=== PATIENT | female | born 1955 | race Caucasian/White ===

== ENCOUNTER 2021-02-25 08:47 | Outpatient (REF) | payer OTHER, SELFPAY ==
[2021-02-25 11:20] LABS: Glucose Urine UA NEG (NEG); Leukocyte Esterase Urine NEG (NEG); Nitrite Urine NEG (NEG); PH 5.5 (5.0-8.0); Specific Gravity - Urine >= 1.030 (1.005-1.025); Urine Blood 3+ (NEG); Urine Ketones NEG (NEG); Urine Protein NEG (NEG-TRACE)
[2021-02-25 11:29] LABS: Appearance Urine HAZY; Color Urine YELLOW
[2021-02-25 11:42] LABS: Hemoglobin 12.5 g/dl (12.0-16.0); Mean Corpuscular HGB Conc 31.3 g/dl (31.0-35.0); Mean Corpuscular Hemoglobin 24.3 pg (27.0-33.0); Mean Corpuscular Volume 77.7 fL (80-98); Mean Platelet Volume 11.1 fL (9.4-12.3); Platelet Count 249 X10*3/uL (160-400); Red Blood Count 5.15 X10*6/uL (4.20-5.50); Red Cell Distribution Width 15.3 % (11.0-16.0); White Blood Count 4.6 X10*3/uL (4.8-10.8)
[2021-02-25 11:56] LABS: Alanine Aminotransferase 8 U/L (0-31); Albumin Level 4.2 g/dL (3.5-5.0); Alkaline Phosphatase 85 U/L (39-117); Anion Gap 12 (12-20); Aspartate Amino Transferase 17 U/L (5-31); Bilirubin Total 0.8 mg/dL (0.0-1.0); Blood Urea Nitrogen 17 mg/dL (9-16); Calcium 9.4 mg/dL (8.4-10.2); Carbon Dioxide 28 mmol/L (22-29); Chloride 103 mmol/L (96-108); Cholesterol 215 mg/dL; Estimated Glomerular Filt Rate > 60; Glucose Fasting 91 mg/dL (60-99); HDL Cholesterol 63 mg/dL; LDL Cholesterol Calculated 132 mg/dl; Potassium 4.4 mmol/L (3.3-5.1); Sodium 139 mmol/L (135-145); Total Protein 7.2 g/dL (6.5-8.0); Triglycerides 101 mg/dL
[2021-02-25 12:01] LABS: Bacteria Urine TRACE /LPF; Calcium Oxalate Crystals Urine 2+ /LPF; RBC Urine 30-49 /HPF (0); Squamous Epithelial Cell Urine 1+ /LPF; WBC Urine 0 /HPF (0-4)
[2021-02-25 12:06] LABS: TSH reflex Free T4 0.94 uIU/mL (0.32-4.0)
== END 2021-02-25 08:48 | disposition home or self-care (01) ==
LOC: HO.HMGCLDS 08:47
PROVIDERS: PCP Internal Medicine; Visit Provider Internal Medicine
DX: Z00.00 Encounter for general adult medical examination without abnormal findings (principal); H93.19 Tinnitus, unspecified ear
CPT/HCPCS: 36415; 80053; 80061; 81001; 84443; 85027

== ENCOUNTER 2021-03-26 08:19 | Outpatient (REF) | payer OTHER, SELFPAY ==
[2021-03-26 11:39] LABS: Glucose Urine UA NEG (NEG); Leukocyte Esterase Urine NEG (NEG); Nitrite Urine NEG (NEG); PH 6.5 (5.0-8.0); Specific Gravity - Urine 1.015 (1.005-1.025); UACC Culture Trigger NO; Urine Blood 1+ (NEG); Urine Ketones NEG (NEG); Urine Protein TRACE MG/DL (NEG-TRACE)
[2021-03-26 11:44] LABS: Appearance Urine CLEAR; Color Urine YELLOW
[2021-03-26 12:06] LABS: Bacteria Urine TRACE /LPF; Mucus Urine 1+ /LPF; Squamous Epithelial Cell Urine 1+ /LPF; WBC Urine 0-2 /HPF (0-4)
== END 2021-03-26 08:20 | disposition home or self-care (01) ==
LOC: HO.HMGCLDS 08:19
PROVIDERS: PCP Internal Medicine; Visit Provider Internal Medicine
DX: R31.29 Other microscopic hematuria (principal)
CPT/HCPCS: 81001

== ENCOUNTER 2021-04-08 07:44 | Outpatient (REF) | payer OTHER, SELFPAY ==
[2021-04-08 11:43] LABS: Glucose Urine UA NEG (NEG); Leukocyte Esterase Urine NEG (NEG); Nitrite Urine NEG (NEG); UACC Culture Trigger NO; Urine Blood 2+ (NEG); Urine Ketones NEG (NEG); Urine Protein NEG (NEG-TRACE)
[2021-04-08 11:44] LABS: Appearance Urine CLEAR; Color Urine YELLOW
[2021-04-08 12:50] LABS: Bacteria Urine TRACE /LPF; Calcium Phosphate Crystals Ur TRACE /LPF; Squamous Epithelial Cell Urine TRACE /LPF; WBC Urine 0-2 /HPF (0-4); White Blood Cell Casts Urine 0-2 /LPF
== END 2021-04-08 07:45 | disposition home or self-care (01) ==
LOC: HO.HMGCLDS 07:44
PROVIDERS: PCP Internal Medicine; Visit Provider Internal Medicine
DX: R31.29 Other microscopic hematuria (principal)
CPT/HCPCS: 81001

== ENCOUNTER 2023-01-11 09:52 | Outpatient (REF) | payer MEDICARE, SELFPAY ==
[2023-01-11 11:20] LABS: MANUAL DIFF FLAG NO
[2023-01-11 11:26] LABS: Appearance Urine Clear; Color Urine Yellow; Glucose Urine UA Negative (Negative); Leukocyte Esterase Urine Negative (Negative); Nitrite Urine Negative (Negative); PH 6.5 (5.0-9.0); Urine Blood Negative (Negative); Urine Ketones Negative (Negative); Urine Protein Negative (Neg-Trace)
[2023-01-11 11:33] LABS: Bacteria Urine None Seen (None Seen); Hyaline Casts Urine 0-2 /LPF (0-2); Squamous Epithelial Cell Urine 0-2 /HPF (0-2); WBC Urine 0-5 /HPF (0-5)
[2023-01-11 11:34] LABS: Basophils Absolute Auto 0.1 X10*3/uL (0.0-0.2); Basophils Percent Auto 1.4 % (0-2); Eosinophils Absolute Auto 0.1 X10*3/uL (0.0-0.4); Eosinophils Percent Auto 1.7 % (0-4); Hematocrit 39.5 % (37.0-47.0); Hemoglobin 12.4 g/dl (12.0-16.0); Imm Gran Abs Auto 0.03 X10*3/uL (0.00-0.03); Imm Gran Pct Auto 0.7 % (0.0-0.4); Lymphocytes Absolute Auto 1.5 X10*3/uL (1.2-4.9); Lymphocytes Percent Auto 36.3 % (20-40); Mean Corpuscular HGB Conc 31.4 g/dl (31.0-35.0); Mean Corpuscular Hemoglobin 24.8 pg (27.0-33.0); Mean Corpuscular Volume 79.2 fL (80.0-98.0); Mean Platelet Volume 10.8 fL (9.4-12.3); Monocytes Absolute Auto 0.4 X10*3/uL (0.1-1.2); Monocytes Percent Auto 9.5 % (2-11); Neutrophils Absolute Auto 2.1 x10*3/uL (2.0-8.3); Neutrophils Percent Auto 50.4 % (45-73); Platelet Count 227 X10*3/uL (160-400); Red Blood Count 4.99 X10*6/uL (4.20-5.50); Red Cell Distribution Width 14.7 % (11.0-16.0); White Blood Count 4.2 X10*3/uL (4.8-10.8)
[2023-01-11 12:01] LABS: Alanine Aminotransferase 11 U/L (0-31); Albumin Level 4.1 g/dL (3.5-5.0); Alkaline Phosphatase 97 U/L (39-117); Anion Gap 10 (12-20); Aspartate Amino Transferase 20 U/L (5-31); Bilirubin Total 0.9 mg/dL (0.0-1.0); Blood Urea Nitrogen 22 mg/dL (9-16); Calcium 9.5 mg/dL (8.4-10.2); Carbon Dioxide 29 mmol/L (22-29); Chloride 104 mmol/L (96-108); Cholesterol 212 mg/dL; Estimated Glomerular Filt Rate > 60; Glucose Fasting 93 mg/dL (60-99); HDL Cholesterol 68 mg/dL; Iron 44 mcg/dL (30-160); LDL Cholesterol Calculated 130 mg/dl; Percent Iron Saturation 10 % (15-50); Potassium 4.4 mmol/L (3.3-5.1); Sodium 139 mmol/L (135-145); Total Iron Binding Capacity 443 mcg/dL (228-428); Triglycerides 71 mg/dL; Unsaturated Iron Binding 399 ug/dL
[2023-01-11 12:31] LABS: Folate 11.7 ng/mL (> or = 4.0); TSH reflex Free T4 1.32 uIU/mL (0.32-4.0); Vitamin B12 169 pg/mL (200-900); Vitamin D 25-OH Total 14.1 ng/mL (>30)
== END 2023-01-11 09:53 | disposition home or self-care (01) ==
LOC: HO.HMGCLDS 09:52
PROVIDERS: PCP Internal Medicine; Visit Provider Internal Medicine
DX: Z00.00 Encounter for general adult medical examination without abnormal findings (principal); E53.8 Deficiency of other specified B group vitamins; E66.9 Obesity, unspecified; E78.5 Hyperlipidemia, unspecified; R31.29 Other microscopic hematuria; I25.10 Atherosclerotic heart disease of native coronary artery without angina pectoris; I25.84 Coronary atherosclerosis due to calcified coronary lesion; Z92.89 Personal history of other medical treatment
CPT/HCPCS: 36415; 80053; 80061; 81001; 82306; 82607; 82746; 83540; 84443; 85025

== ENCOUNTER 2023-03-09 08:53 | Outpatient (REF) | payer MEDICARE, SELFPAY ==
--- NOTE | ~2023-03-09 | MM_ITS ---
EXAMINATION: BONE DENSITOMETRY CLINICAL INDICATION: Menopause. COMPARISON: This is the patient's baseline examination. TECHNIQUE: Using a [employer] DXA System (software version: 13.1) manufactured by [employer], dual-energy x-ray absorptiometry was performed of the lumbar spine and left hip. The images are of good technical quality. Summary results are attached. FINDINGS: LEFT FEMUR, NECK: BMD 0.707 g/cm2, Z-score -1.6, T-score -2.4, osteopenia. LEFT FEMUR, TOTAL: BMD 0.779 g/cm2, Z-score -1.4, T-score -1.8, osteopenia. AP SPINE L1-L4: BMD 0.981 g/cm2, Z-score -1.2, T-score -1.7, osteopenia. IDENTIFIED RISK FACTORS: Menopause, osteoporosis, glucocorticoids (chronic), history of fracture (adult), low calcium intake, secondary osteoporosis. HISTORY OF FRACTURE: Other. MEDICATIONS: Calcium, vitamin D. MM/XR DEXA axial skeleton IMPRESSION: 1. DIAGNOSIS: Osteopenia based on the lowest T-score value of -2.4 in the femoral neck applying World Health Organization criteria. 2. 10-YEAR FRACTURE RISK PREDICTION, FRAX: Major osteoporotic fracture (clinical spine, forearm, hip or shoulder) 29.8%. Hip fracture 7.0%. 3. Treatment Recommendations: NOF guidelines recommend consideration for treatment in postmenopausal women and men age 50 and older presenting with the following: -A hip or vertebral (clinical or morphometric) fracture. -T-score less than or equal to -2.5 at the femoral neck or spine after appropriate evaluation to exclude secondary causes. -Low bone mass at the hip or spine and a 10-year fracture probability by FRAX of greater than or equal to 3% for hip fracture or greater than or equal to 20% for major osteoporotic fracture based on the [place] adapted WHO algorithm. 4. Other Recommendations: All treatment decisions require clinical judgment and consideration of individual patient factors, including patient preferences, comorbidities, previous drug use, risk factors not captured in the FRAX model (e.g. frailty, falls, vitamin D deficiency, increased bone turnover, interval significant decline in bone density) and possible under or overestimation of fracture risk by FRAX. Additional medical evaluation for secondary cause of low bone mineral density may be appropriate. FUTURE SCAN RECOMMENDATION: People with diagnosed cases of osteoporosis or at high risk for fracture should have regular bone mineral density tests. For patients eligible for Medicare, routine testing is allowed once every 2 years. The testing frequency can be increased to one year for patients who have rapidly progressing disease, those who are receiving or discontinuing medical therapy to restore bone mass, or have additional risk factors.
== END 2023-03-09 08:54 | disposition home or self-care (01) ==
LOC: HO.MAMMO 08:53
PROVIDERS: PCP Internal Medicine; Visit Provider Internal Medicine
DX: Z13.820 Encounter for screening for osteoporosis (principal); Z78.0 Asymptomatic menopausal state
CPT/HCPCS: 77080

== ENCOUNTER 2023-05-18 12:02 | Outpatient (AMB) | payer MEDICARE, SELFPAY ==
--- NOTE | 2023-05-18 12:18 | MHC.PC.OV ---
Vital Signs 05/18/23 12:19 Height 5 ft 8.5 in Weight 251 lb 2 oz BMI 37.6 BP 126/70 Blood Pressure Location Rt brachial Position Sitting Pulse 70 Pulse Source Pulse Oximeter Pulse Oximetry (%) 98 Oxygen Delivery Method Room Air Intake Visit Reasons: 3M Follow up Allergies amoxicillin Allergy (Unknown, Verified 05/18/23 12:20) unknown oxycodone [Percocet] Allergy (Unknown, Verified 05/18/23 12:20) unknown penicillin V Allergy (Unknown, Verified 05/18/23 12:20) unknown Sulfa (Sulfonamide Antibiotics) Allergy (Unknown, Verified 05/18/23 12:20) unkown Medication List - Last Reconciled 05/18/23 by Milana Hester MD calcium carbonate (Calcium 500) PO compr.stocking,knee,long,large As directed multivitamin with iron PO pravastatin 40 mg PO DAILY Tobacco use date assessed: 05/18/23 Fall risk assessment: No Falls in past year Last assessed Fall Risk: 05/18/23 Dental Screening Dental Screen Date: 05/18/23 Did you have a dental visit in the last 12 months?: Yes Did you have a dental problem in the last 6 months where you did not have access to dental care?: No Was dental information given to patient?: Patient has dentist HPI 3M Follow up HPI Details Pt presents for f/u hyperlipid, stable on pravastatin. Patient complains of leg cramps worse at night waking patient up up to 3 times a night. Patient complains of declining memory having episodes of forgetting where she is driving. 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 [facility] Medical History Hyperlipidemia Vitamin B 12 deficiency Microhematuria Annual physical exam Tinnitus FH: total knee replacement Osteoarthritis, knee Iron deficiency anemia Asthma Osteopenia Surgical History S/P gastric bypass History of esophagogastroduodenoscopy (EGD) H/O colonoscopy Family History Father Cancer Mother No problems noted. Social History Housing: House Patient Tobacco Use Status: Never used Tobacco e-Cigarette/Vaping Use: Never Used Second Hand Smoke Exposure: No service: No Current occupational status: employed Current occupational exposures/hazards: No Cognitive needs: No Hearing needs: No Vision needs: No Questionnaire Thrive Questionnaire Date Thrive assessed: 09/15/21 AUDIT C Alcohol Use Questionnaire (AUDIT-C) 1. How often do you have a drink containing alcohol?: Never 3. How often do you have six or more drinks on one occasion?: Never Total Score: 0 Score Reviewed/Action Taken: Yes NBA-7 AMB Questionnaire NBA-7 Date NBA - 7 assessed: 09/15/21 Source: Developed by Drs. Roberto Muniz, Kim Pat, Lalo Deng and colleagues, with an educational ivonne from [employer]. Review of Systems Const All systems reviewed & are unremarkable except as noted in HPI and below Reports no additional complaints Eyes Reports no additional complaints ENT Reports no additional complaints Card Reports no additional complaints Resp Reports no additional complaints GI Reports no additional complaints Reports no additional complaints Physical exam (Primary Care) Vital Signs: Last Vital Signs Pulse 70 05/18/23 12:19 BP 126/70 05/18/23 12:19 Pulse Ox 98 05/18/23 12:19 Oxygen Delivery Method Room Air 05/18/23 12:19 BMI result Body Mass Index 37.6 Tobacco/Smoking Status: Tobacco use Status Tobacco use date assessed 05/18/23 05/18/23 12:22 Patient Tobacco Use Status Never used Tobacco 05/18/23 12:22 e-Cigarette/Vaping Use Never Used 05/18/23 12:22 Thrive Assessment: Date of Thrive Assessment Date Thrive assessed 09/15/21 05/18/23 12:22 Const General: no acute distress HENMT Throat: Yes posterior oropharynx normal Neck Neck: Yes no lymphadenopathy and Yes supple Resp Effort & Inspection: normal respiratory effort Auscultation: clear to auscultation bilaterally Cardio Rhythm: regular rhythm Heart sounds: S1 normal heart sound present and S2 normal heart sound present GI Inspection: Yes normal to inspection Palpation (GI): Soft to palpation Extrem Other: Pulses 1+ bilaterally, chronic venous stasis changes bilaterally in lower extremities General: Yes no clubbing, cyanosis or edema Psych Mental Status: mental status grossly normal Speech and movement: Normal speech and movement present Assessment and Plan Assessment & Plan (1) Vitamin D deficiency: Code(s): E55.9 - Vitamin D deficiency, unspecified Plan: Continue vitamin-D (2) Vitamin B 12 deficiency: Code(s): E53.8 - Deficiency of other specified B group vitamins Plan: Check vitamin B12 level (3) Iron deficiency: Code(s): E61.1 - Iron deficiency Plan: Check iron level (4) Hyperlipidemia: Code(s): E78.5 - Hyperlipidemia, unspecified Plan: Continue pravastatin. For leg cramps patient was advise to try CO Q10 supplement and increase fluid intake if the symptoms persist pravastatin will be discontinued. (5) Memory deficit: Code(s): R41.3 - Other amnesia Plan: Obtain blood work including TSH and vitamin B12 level. Orders: Orders Comprehensive Met. Panel Today E53.8 - Deficiency of other specified B group vitamins, E55.9 - Vitamin D deficiency, unspecified, E61.1 - Iron deficiency Vitamin D 25-OH Total Today E55.9 - Vitamin D deficiency, unspecified IRON PROFILE Today E55.9 - Vitamin D deficiency, unspecified, E61.1 - Iron deficiency, E78.5 - Hyperlipidemia, unspecified Vitamin B12 and Folate Today E55.9 - Vitamin D deficiency, unspecified, E61.1 - Iron deficiency Coding Level of Care Code Est Pt Level 3 (44395) Diagnoses Vitamin D deficiency E55.9 Vitamin B 12 deficiency E53.8 Iron deficiency E61.1 Hyperlipidemia E78.5 Memory deficit R41.3
[2023-05-18 12:19] VITALS: BP 126/70; PULSE 70; O2SAT 98; BMI 37.6
== END 2023-05-18 16:03 | disposition home or self-care (01) ==
PROVIDERS: PCP Internal Medicine; Visit Provider Internal Medicine
DX: E55.9 Vitamin D deficiency, unspecified (principal); E53.8 Deficiency of other specified B group vitamins; E61.1 Iron deficiency; E78.5 Hyperlipidemia, unspecified; R41.3 Other amnesia
CPT/HCPCS: 99213

== ENCOUNTER 2023-05-18 12:53 | Outpatient (REF) | payer MEDICARE, SELFPAY ==
[2023-05-18 17:21] LABS: Alanine Aminotransferase 8 U/L (0-31); Alkaline Phosphatase 85 U/L (39-117); Anion Gap 16 (12-20); Aspartate Amino Transferase 20 U/L (5-31); Bilirubin Total 0.8 mg/dL (0.0-1.0); Blood Urea Nitrogen 16 mg/dL (9-16); Calcium 9.5 mg/dL (8.4-10.2); Carbon Dioxide 25 mmol/L (22-29); Chloride 104 mmol/L (96-108); Estimated Glomerular Filt Rate > 60; Glucose Random 88 mg/dL (60-115); Iron 70 mcg/dL (30-160); Percent Iron Saturation 18 % (15-50); Potassium 4.1 mmol/L (3.3-5.1); Sodium 141 mmol/L (135-145); Total Iron Binding Capacity 394 mcg/dL (228-428); Total Protein 7.2 g/dL (6.5-8.0); Unsaturated Iron Binding 324 ug/dL
[2023-05-18 17:30] LABS: Vitamin D 25-OH Total 31.3 ng/mL (>30)
[2023-05-18 17:41] LABS: Folate 9.4 ng/mL (> or = 4.0); Vitamin B12 197 pg/mL (200-900)
== END 2023-05-18 12:54 | disposition home or self-care (01) ==
LOC: HO.HMGCLDS 12:53
PROVIDERS: PCP Internal Medicine; Visit Provider Internal Medicine
DX: E53.8 Deficiency of other specified B group vitamins (principal); E61.1 Iron deficiency; E78.5 Hyperlipidemia, unspecified; E55.9 Vitamin D deficiency, unspecified
CPT/HCPCS: 36415; 80053; 82306; 82607; 82746; 83540

== ENCOUNTER 2024-01-18 08:48 | Outpatient (AMB) | payer MEDICARE, SELFPAY ==
--- NOTE | 2024-01-18 09:09 | MHC.PC.OV ---
Intake Visit Reasons: SHARLA [id number] - see comments Allergies amoxicillin Allergy (Unknown, Verified 05/18/23 12:20) unknown oxycodone [Percocet] Allergy (Unknown, Verified 05/18/23 12:20) unknown penicillin V Allergy (Unknown, Verified 05/18/23 12:20) unknown Sulfa (Sulfonamide Antibiotics) Allergy (Unknown, Verified 05/18/23 12:20) unkown Tobacco use date assessed: 05/18/23 Dental Screening Dental Screen Date: 05/18/23 [facility] Medical History Hyperlipidemia Vitamin B 12 deficiency Microhematuria Annual physical exam Tinnitus FH: total knee replacement Osteoarthritis, knee Iron deficiency anemia Asthma Osteopenia Surgical History S/P gastric bypass History of esophagogastroduodenoscopy (EGD) H/O colonoscopy Family History Father Cancer Mother No problems noted. Social History Housing: House Patient Tobacco Use Status: Never used Tobacco e-Cigarette/Vaping Use: Never Used Second Hand Smoke Exposure: No service: No Current occupational status: employed Current occupational exposures/hazards: No Cognitive needs: No Hearing needs: No Vision needs: No Questionnaire Thrive Questionnaire Date Thrive assessed: 09/15/21 NBA-7 AMB Questionnaire NBA-7 Date NBA - 7 assessed: 09/15/21 Source: Developed by Drs. Roberto Muniz, Kim Pat, Lalo Deng and colleagues, with an educational ivonne from [employer]. Physical exam (Primary Care) Tobacco/Smoking Status: Tobacco use Status Tobacco use date assessed 05/18/23 05/18/23 12:22 Patient Tobacco Use Status Never used Tobacco 05/18/23 12:22 e-Cigarette/Vaping Use Never Used 05/18/23 12:22 Thrive Assessment: Date of Thrive Assessment Date Thrive assessed 09/15/21 05/18/23 12:22 Coding
[2024-01-18 09:12] VITALS: BP 108/66; PULSE 61; O2SAT 97; BMI 38.8
--- NOTE | 2024-01-18 09:12 | A.OFFVIS_ITS ---
Intake Vital Signs 01/18/24 09:12 Height 5 ft 8.5 in Weight 259 lb BMI 38.8 BP 108/66 Blood Pressure Location Rt brachial Position Sitting Pulse 61 Pulse Source Pulse Oximeter Pulse Oximetry (%) 97 Oxygen Delivery Method Room Air Intake Visit Reasons: SHARLA [id number] - see comments Allergies amoxicillin Allergy (Unknown, Verified 01/18/24 09:13) unknown oxycodone [Percocet] Allergy (Unknown, Verified 01/18/24 09:13) unknown penicillin V Allergy (Unknown, Verified 01/18/24 09:13) unknown Sulfa (Sulfonamide Antibiotics) Allergy (Unknown, Verified 01/18/24 09:13) unkown Medication List - Last Reconciled 01/18/24 by Milana Hester MD calcium carbonate (Calcium 500) PO compr.stocking,knee,long,large As directed [coq10 PO] melatonin 10 mg PO BEDTIME PRN multivitamin with iron PO pravastatin 40 mg PO DAILY HPI [facility] [id number] - see comments HPI Details Initiated the conversation about Advanced Directives. Advanced Directives help? patients prepare for current and future decisions about their medical treatment? and place of care. Discussed with patient that it is a process where a patients? current condition and prognosis are reviewed, their wishes for information? regarding their illness are elicited, and likely medical dilemmas are presented? and options discussed. The form can be amended as needed, reviewed yearly and? make changes as needed IPPE/AWV ? year old presents? for her ? Annual? Wellness Visit, initial visit.? Medical / Social History Reviewed? Past Medical History ?Yes? . ? [place]? of Care / Care Team list updated ?Yes . ? Surgical/Hospitalization? History ?Yes . ? Current Medications? (including OTC and supplements) ?Yes . ? Family History ?Yes? . ? Tobacco? Control form ?Yes . ? AUDIT-C (Alcohol use) form? ?Yes . ? Illicit drug use in Social? History ?Yes . ? Current diagnosis of? depression? ?No ? Appropriate PHQ2/PHQ9? completed ?Yes . ? Data entered by ?Medical? Mass Spectrometry Manager and reviewed by provider ? Fall Risk ? Fall? History? Have you had any falls with? injury in the past year? ?No . ? Have you had two or more? falls in the past year? ?No . ? Fall Risk Assessment: ?No? falls in the past year . ? HRA filled out by? the patient, reviewed by Provider and scanned. ? IPPE/AWV ? Balance? [place]? ?Yes . ? Tandem? walk ?Yes . ? Walk and? Turn ?Yes . ? Rise from? sit to stand ?Yes . ?Vision? Corrective? lens ?Yes ? Vision? screen ? Up-to-date, has an appointment [] for vision? screening and glaucoma screening ?Hearing? Whisper? test ?pass .? Initiated the conversation about Advanced Directives. Advanced Directives help? patients prepare for current and future decisions about their medical treatment? and place of care. Discussed with patient that it is a process where a patients? current condition and prognosis are reviewed, their wishes for information? regarding their illness are elicited, and likely medical dilemmas are presented? and options discussed. The form can be amended as needed, revi ewed yearly and? make changes as needed Written? Plan?Completed. See Patient? Documents. PFSH Medical History Hyperlipidemia Vitamin B 12 deficiency Microhematuria Annual physical exam Tinnitus FH: total knee replacement Osteoarthritis, knee Iron deficiency anemia Asthma Osteopenia Surgical History S/P gastric bypass History of esophagogastroduodenoscopy (EGD) H/O colonoscopy Family History Father Cancer Mother No problems noted. Social History Housing: House Patient Tobacco Use Status: Never used Tobacco e-Cigarette/Vaping Use: Never Used Second Hand Smoke Exposure: No service: No Current occupational status: employed Current occupational exposures/hazards: No Cognitive needs: No Hearing needs: No Vision needs: No Questionnaire Medicare Wellness Checkup [age] What gender do you identify with?: female During the past 4 weeks, how much have you been bothered by emotional problems such as feeling anxious, depressed, irritable, sad or downhearted, and blue?: not at all During the past 4 weeks, has your physical & emotional health limited your social activities with family, friends, neighbors, or groups?: not at all During the past 4 weeks, how much bodily pain have you generally had?: mild pain During the past 4 weeks, was someone available to help you if you needed & wanted help?: yes, as much as I wanted During the past 4 weeks, what was the hardest physical activity you could do for at least 2 minutes?: moderate Can you get to places out of walking distance without help? (For eg., can you travel alone on buses, taxis or drive your car?): Yes Can you go shopping for groceries or clothes without someone's help?: Yes Can you prepare your own meals?: Yes Can you do your housework without help?: Yes Because of any health problems, do you need the help of another person with your personal care needs such as eating, bathing, dressing or getting around the house?: No Can you handle your own money without help?: Yes During the past 4 weeks, how would you rate your health in general?: good During the past 4 weeks how have things been going for you?: pretty well Are you having difficulties driving your car?: no Do you always fasten your seat belt when you are in a car?: yes, usually During past 4 weeks, have you been bothered by the following: never: Falling or dizzy when standing up, Sexual problems?, Trouble eating well?, Teeth or denture problems?, Problems using the telephone? and Tiredness or fatigue? Have you fallen 2 or more times in the past year?: No Are you afraid of falling?: No Are you a smoker?: no During the past 4 weeks, how many drinks of wine, beer, or other alcoholic beverages did you have?: no alcohol at all Do you exercise for about 20 minutes 3 or more times a week?: yes, some of the time Have you been given information to help with the following?: no: Hazards in your house that might hurt you? and no: Keeping track of your medications? How often do you have trouble taking medicines the way you have been told to take them?: I always take medicine as prescribed How confident are you that you can control & manage most of your health problems?: very confident What is your race?: White Mini Mental State Exam (MMSE) Orientation What is the (year) (season) (date) (day) (month)?: year, season, date, day and month Where are we (state) (county) (town or city) (hospital) (floor)?: state, county, town or city, hospital/clinic and floor Registration Name of 3 unrelated objects clearly and slowly, then ask patient to repeat all 3 of them. (1st repeat determines score. Make sure they can repeat all three): object 1, object 2 and object 3 Attention & Calculation (CHOOSE ONE) Spell WORLD backwards (DLROW): 5 letters Recall Ask patient to repeat the 3 items from question #3.: object 1, object 2 and object 3 Language Show patient a wristwatch & ask what it is. Repeat for pencil.: watch and pencil Ask the patient to repeat the phrase 'No ifs, ands, or buts' after you.: correct Ask the patient to 'take a piece of paper with their right hand' 'fold paper in half' 'place paper on floor': take paper in right hand, fold paper in half and place paper on floor Print the sentence 'CLOSE YOUR EYES' on a piece. If patient actually closes eyes then score.: followed written direction Give patient a blank piece of paper & ask to write a sentence. Score if it contains a noun & verb.: sentence contains subject and verb Score Score: 29 Activity of Daily Living Bathing - sponge bath, tub bath or shower: receives no assistance (gets in/out by self, if usual bathing means Dressing - getting clothes from closets & drawers, including inner/outer garments & fasteners.: gets clothes & gets completely dressed without help Toileting - going to the 'toilet room' for urine/bowel elimination & cleaning self/arranging clothes: goes to toilet room, cleans self, arranges clothes without help Transfer: moves in & out of bed and chair without help (may use support object) Continence: controls urination/bowel movements completely by self Feeding: feeds self without help Total Score: 0 Information obtained from: patient Using telephone: independent Traveling: independent Shopping: independent Preparing meals: independent Housework: independent Taking medicine: independent Managing money: independent PHQ-9 Over the last 2 weeks, how often have you been bothered by any of the following problems? 1. Little interest or pleasure in doing things: not at all 2. Feeling down, depressed, or hopeless: not at all 3. Trouble falling or staying asleep, or sleeping too much: nearly every day 4. Feeling tired or having little energy: several days 5. Poor appetite or overeating: not at all 6. Feeling bad about yourself - or that you are a failure or have let yourself or your family down: not at all 7. Trouble concentrating on things, such as reading the newspaper or watching television: not at all 8. Moving or speaking so slowly that other people could have noticed. Or the opposite - being so fidgety or restless that you have been moving around a lot more than usual: not at all 9. Thoughts that you would be better off or of hurting yourself in some way: not at all Total score: 4 Source: Developed by Drs. Roberto Muniz, Kim Pat, Lalo Deng and colleagues, with an educational ivonne from [employer]. Review of Systems Const All systems reviewed & are unremarkable except as noted in HPI and below Eyes Reports no additional complaints ENT Reports no additional complaints Card Reports no additional complaints Resp Reports no additional complaints GI Reports no additional complaints Reports no additional complaints Physical Exam Vital Signs: Last Vital Signs Pulse 61 01/18/24 09:12 BP 108/66 01/18/24 09:12 Pulse Ox 97 01/18/24 09:12 Oxygen Delivery Method Room Air 01/18/24 09:12 BMI result Body Mass Index 38.8 Const General: no acute distress HEENT Head: Yes normal to inspection Ears: hearing grossly normal bilaterally Neck Neck: Yes no lymphadenopathy and Yes supple Resp Effort & Inspection: normal respiratory effort Auscultation: clear to auscultation bilaterally Cardio Rhythm: regular rhythm Heart sounds: S1 normal heart sound present and S2 normal heart sound present GI Inspection: Yes normal to inspection Palpation (GI): Soft to palpation Percussion: Yes normal to percussion Auscultation: normal bowel sounds Extrem General: Yes no clubbing, cyanosis or edema Assessment & Plan Assessment & Plan (1) Hyperlipidemia: Code(s): E78.5 - Hyperlipidemia, unspecified Plan: Continue statin (2) Vitamin B 12 deficiency: Code(s): E53.8 - Deficiency of other specified B group vitamins Plan: Continue B12 supplement (3) Annual physical exam: Code(s): Z00.00 - Encounter for general adult medical examination without abnormal findings Plan: Well-balanced diet regular physical activity weight loss discussed with the patient she is up-to-date with the mammogram and colonoscopy Orders: Orders Comprehensive [place]. Panel Fast 1 Year E53.8 - Deficiency of other specified B group vitamins, E55.9 - Vitamin D deficiency, unspecified, E78.5 - Hyperlipidemia, unspecified, Z00.00 - Encounter for general adult medical examination without abnormal findings Lipid Panel 1 Year E53.8 - Deficiency of other specified B group vitamins, E55.9 - Vitamin D deficiency, unspecified, E78.5 - Hyperlipidemia, unspecified, Z00.00 - Encounter for general adult medical examination without abnormal findings Complete Blood Count Auto Diff 1 Year E53.8 - Deficiency of other specified B group vitamins, E55.9 - Vitamin D deficiency, unspecified, E78.5 - Hyperlipidemia, unspecified, Z00.00 - Encounter for general adult medical examination without abnormal findings Vitamin B12 and Folate 1 Year E53.8 - Deficiency of other specified B group vitamins, E55.9 - Vitamin D deficiency, unspecified, E78.5 - Hyperlipidemia, unspecified, Z00.00 - Encounter for general adult medical examination without abnormal findings Quality Reporting (2019) Depression/Bipolar (159/160/161/177) PHQ-9: Total score: 4 Coding Level of Care Code Medicare Subsequent (G0439) Diagnoses Hyperlipidemia E78.5 Vitamin B 12 deficiency E53.8 Annual physical exam Z00.00 CPT Codes Advance Care Planning - Advance Care Planning discussion: On file, no changes ([id number]) Advance Care Planning - Time spent: 1-15 minutes, on File ([id number]) Advance Care Planning Advance Care Planning discussion: On file, no changes Forms completed: Health Care Proxy Time spent: 1-15 minutes, on File Did not discuss due to Cultural/Spiritual beliefs: Yes
== END 2024-01-18 10:08 | disposition home or self-care (01) ==
PROVIDERS: Visit Provider Internal Medicine
DX: Z00.00 Encounter for general adult medical examination without abnormal findings (principal); E78.5 Hyperlipidemia, unspecified; E53.8 Deficiency of other specified B group vitamins
CPT/HCPCS: 1123F; G0439

== ENCOUNTER 2024-01-18 09:41 | Outpatient (REF) | payer MEDICARE, SELFPAY ==
[2024-01-18 13:28] LABS: MANUAL DIFF FLAG NO
[2024-01-18 13:54] LABS: Basophils Absolute Auto 0.1 X10*3/uL (0.0-0.2); Basophils Percent Auto 1.2 % (0-2); Eosinophils Absolute Auto 0.2 X10*3/uL (0.0-0.4); Eosinophils Percent Auto 3.7 % (0-4); Hematocrit 38.8 % (37.0-47.0); Hemoglobin 12.3 g/dl (12.0-16.0); Imm Gran Abs Auto 0.01 X10*3/uL (0.00-0.03); Imm Gran Pct Auto 0.2 % (0.0-0.4); Lymphocytes Absolute Auto 1.4 X10*3/uL (1.2-4.9); Lymphocytes Percent Auto 33.6 % (20-40); Mean Corpuscular HGB Conc 31.7 g/dl (31.0-35.0); Mean Corpuscular Hemoglobin 24.8 pg (27.0-33.0); Mean Corpuscular Volume 78.2 fL (80.0-98.0); Monocytes Absolute Auto 0.5 X10*3/uL (0.1-1.2); Monocytes Percent Auto 10.5 % (2-11); Neutrophils Absolute Auto 2.2 x10*3/uL (2.0-8.3); Neutrophils Percent Auto 50.8 % (45-73); Platelet Count 213 X10*3/uL (160-400); Red Blood Count 4.96 X10*6/uL (4.20-5.50); Red Cell Distribution Width 14.4 % (11.0-16.0); White Blood Count 4.3 X10*3/uL (4.8-10.8)
[2024-01-18 14:22] LABS: Alanine Aminotransferase 9 U/L (0-31); Albumin Level 3.8 g/dL (3.5-5.0); Alkaline Phosphatase 75 U/L (39-117); Anion Gap 10 (12-20); Aspartate Amino Transferase 21 U/L (5-31); Bilirubin Total 0.7 mg/dL (0.0-1.0); Blood Urea Nitrogen 17 mg/dL (9-16); Calcium 9.5 mg/dL (8.4-10.2); Carbon Dioxide 29 mmol/L (22-29); Chloride 104 mmol/L (96-108); Cholesterol 171 mg/dL (<200); Estimated Glomerular Filt Rate > 60; Glucose Fasting 86 mg/dL (60-99); HDL Cholesterol 60 mg/dL (>40); Iron 59 mcg/dL (30-160); LDL Cholesterol Calculated 95 mg/dL (<100); Percent Iron Saturation 15 % (15-50); Potassium 4.4 mmol/L (3.3-5.1); Sodium 139 mmol/L (135-145); Total Iron Binding Capacity 398 mcg/dL (228-428); Total Protein 7.1 g/dL (6.5-8.0); Triglycerides 83 mg/dL (<150); Unsaturated Iron Binding 339 ug/dL
[2024-01-18 14:24] LABS: Vitamin D 25-OH Total 24.1 ng/mL (>30)
[2024-01-18 14:36] LABS: Folate 6.3 ng/mL (> or = 4.0); Vitamin B12 < 148 pg/mL (200-900)
== END 2024-01-18 09:42 | disposition home or self-care (01) ==
LOC: HO.HMGCLDS 09:41
PROVIDERS: PCP Internal Medicine; Visit Provider Internal Medicine
DX: E61.1 Iron deficiency (principal); E55.9 Vitamin D deficiency, unspecified; E53.8 Deficiency of other specified B group vitamins; E78.5 Hyperlipidemia, unspecified; E66.9 Obesity, unspecified
CPT/HCPCS: 36415; 80053; 80061; 82306; 82607; 82746; 83540; 85025

== ENCOUNTER 2024-06-27 13:28 | Outpatient (AMB) | payer MEDICARE, SELFPAY ==
--- NOTE | 2024-06-27 13:42 | MHC.PC.OV ---
Vital Signs 06/27/24 13:45 Height 5 ft 8.5 in Weight 257 lb BMI 38.5 BP 128/80 Blood Pressure Location Rt brachial Position Sitting Pulse 91 Pulse Source Pulse Oximeter Pulse Oximetry (%) 97 Oxygen Delivery Method Room Air Intake Visit Reasons: follow up B12 Intake Note: Pt is here today for her f/u B12 Allergies amoxicillin Allergy (Unknown, Verified 06/27/24 13:48) unknown oxycodone [Percocet] Allergy (Unknown, Verified 06/27/24 13:48) unknown penicillin V Allergy (Unknown, Verified 06/27/24 13:48) unknown Sulfa (Sulfonamide Antibiotics) Allergy (Unknown, Verified 06/27/24 13:48) unkown latex Adverse Reaction (Verified 06/27/24 13:48) rash Medication List - Last Reconciled 06/27/24 by Milana Hester MD calcium carbonate (Calcium 500) PO compr.stocking,knee,long,large As directed [coq10 PO] melatonin 10 mg PO BEDTIME PRN multivitamin with iron PO pravastatin 40 mg PO DAILY Tobacco use date assessed: 06/27/24 Fall risk assessment: No Falls in past year Last assessed Fall Risk: 06/27/24 Dental Screening Dental Screen Date: 06/27/24 Did you have a dental visit in the last 12 months?: Yes Did you have a dental problem in the last 6 months where you did not have access to dental care?: No Was dental information given to patient?: Patient has dentist HPI follow up B12 HPI Details Patient presents for the follow-up. She has been taking vitamin B12 supplement but has not had a blood work to repeat the level. Patient has been trying to lose weight decreasing caloric intake increasing physical activity last 6 months unsuccessfully. She is in a high risk for complications of obesity including coronary artery disease, [place] or CVA. [facility] Medical History Hyperlipidemia Vitamin B 12 deficiency Microhematuria Annual physical exam Tinnitus FH: total knee replacement Osteoarthritis, knee Iron deficiency anemia Asthma Osteopenia Surgical History S/P gastric bypass History of esophagogastroduodenoscopy (EGD) H/O colonoscopy Family History Father Cancer Mother No problems noted. Social History Housing: House Patient Tobacco Use Status: Never used Tobacco e-Cigarette/Vaping Use: Never Used Second Hand Smoke Exposure: No service: No Current occupational status: employed Current occupational exposures/hazards: No Cognitive needs: No Hearing needs: No Vision needs: No Questionnaire PHQ-9 Over the last 2 weeks, how often have you been bothered by any of the following problems? 1. Little interest or pleasure in doing things: not at all 2. Feeling down, depressed, or hopeless: not at all 3. Trouble falling or staying asleep, or sleeping too much: several days 4. Feeling tired or having little energy: several days 5. Poor appetite or overeating: several days 6. Feeling bad about yourself - or that you are a failure or have let yourself or your family down: not at all 7. Trouble concentrating on things, such as reading the newspaper or watching television: not at all 8. Moving or speaking so slowly that other people could have noticed. Or the opposite - being so fidgety or restless that you have been moving around a lot more than usual: not at all 9. Thoughts that you would be better off or of hurting yourself in some way: not at all Total score: 3 Depression Screening Interpretation: Negative Depression Screening Done: Yes [id number] - PHQ-9 Billing: Yes Source: Developed by Drs. Roberto Muniz, Kim Pat, Lalo Deng and colleagues, with an educational ivonne from [employer]. Thrive Questionnaire Date Thrive assessed: 06/27/24 I am a: Patient What is your living situation today?: I have a steady place to live Within the past 12 months, did the food you bought not last and you didn't have the money to get more?: Never true Within the past 12 months, did you worry whether your food would run out before you got money to buy more?: Never true Do you have trouble paying for medicines?: No Do you have trouble getting transportation to medical appointments?: No Do you have trouble paying your heating and electricity bill?: No Do you have trouble taking care of your child, family member or friend?: No Do you have trouble with day-to-day activities such as bathing, preparing meals, shopping, managing finances, etc.?: No Are you currently unemployed and looking for a job?: No Are you interested in more education?: No Please select the resources that you would like help with: None Currently or been in a relationship where the following occur: No concerns reported THRIVE Score: 0 AUDIT C Alcohol Use Questionnaire (AUDIT-C) 1. How often do you have a drink containing alcohol?: Monthly or less 2. How many drinks containing alcohol do you have on a typical day when you are drinking?: 1 or 2 3. How often do you have six or more drinks on one occasion?: Never Total Score: 1 NBA-7 AMB Questionnaire NBA-7 Date NBA - 7 assessed: 06/27/24 Feeling nervous, anxious, or on edge: 0 = Not at all Not being able to stop or control worryin = Not at all Worrying too much about different things: 0 = Not at all Trouble relaxin = Not at all Being so restless that it is hard to sit still: 0 = Not at all Becoming easily annoyed or irritable: 0 = Not at all Feeling afraid as if something awful might happen: 0 = Not at all Total NBA-7 score (0-4 normal; 5-9 mild; 10-14 moderate; 15-21 severe): 0 Source: Developed by Drs. Roberto Muniz, Kim Pat, Lalo Deng and colleagues, with an educational ivonne from [employer]. Review of Systems Const All systems reviewed & are unremarkable except as noted in HPI and below ENT Reports no additional complaints Card Reports no additional complaints Resp Reports no additional complaints GI Reports no additional complaints Reports no additional complaints Physical exam (Primary Care) Vital Signs: Last Vital Signs Pulse 91 06/27/24 13:45 BP 128/80 06/27/24 13:45 Pulse Ox 97 06/27/24 13:45 Oxygen Delivery Method Room Air 06/27/24 13:45 BMI result Body Mass Index 38.5 Tobacco/Smoking Status: Tobacco use Status Tobacco use date assessed 06/27/24 06/27/24 13:52 Patient Tobacco Use Status Never used Tobacco 06/27/24 13:43 e-Cigarette/Vaping Use Never Used 06/27/24 13:43 PHQ-9: PHQ-9 Score PHQ-9: Total score 3 06/27/24 13:43 Depression Screening Interpretation: Negative Thrive Assessment: Date of Thrive Assessment Date Thrive assessed 06/27/24 06/27/24 13:52 Currently or been in a relationship where the following occur: No concerns reported Const General: no acute distress HENMT Head: Yes normal to inspection Face and sinus: Yes normal facial exam Neck Neck: Yes supple Resp Effort & Inspection: normal respiratory effort Auscultation: clear to auscultation bilaterally Cardio Rhythm: regular rhythm Heart sounds: S1 normal heart sound present and S2 normal heart sound present GI Inspection: Yes normal to inspection Coding Level of Care Code Est Pt Level 4 (40228) Diagnoses Vitamin B 12 deficiency E53.8 Vitamin D deficiency E55.9 Iron deficiency E61.1 Obesity E66.9 Additional Codes PHQ-9 - 48654 - PHQ-9 Billing: Yes ([id number]) Assessment & Plan Assessment & Plan (1) Vitamin B 12 deficiency: Code(s): E53.8 - Deficiency of other specified B group vitamins Category: Medical Plan: Continue vitamin B12 supplement check the level (2) Vitamin D deficiency: Code(s): E55.9 - Vitamin D deficiency, unspecified Category: Medical Plan: Continue vitamin-D supplement check the level (3) Iron deficiency: Code(s): E61.1 - Iron deficiency Category: Medical Plan: Check iron count and CBC (4) Obesity: Comment: BMI 38 Code(s): E66.9 - Obesity, unspecified Category: Medical Plan: Start Wegovy 0.25 for the 1st month then increase increase the dose according to patient's tolerance and weight loss affect. It is medically necessary for the patient to take G LP 1 receptor agonist in order to lose weight and decrease risk for coronary artery disease, heart attack CVA and worsening of chronic lower extremities venous insufficiency Orders: Orders Vitamin B12 and Folate Today E53.8 - Deficiency of other specified B group vitamins, E55.9 - Vitamin D deficiency, unspecified Complete Blood Count Auto Diff Today E53.8 - Deficiency of other specified B group vitamins, E55.9 - Vitamin D deficiency, unspecified Vitamin D 25-OH Total Today E53.8 - Deficiency of other specified B group vitamins, E55.9 - Vitamin D deficiency, unspecified IRON PROFILE Today E61.1 - Iron deficiency Medications: New semaglutide (weight loss) (Chente) administer weeks 1 through 4 of therapy 0.25 mg (0.5 mL) subcut QWEEK 2 mL 0RF
[2024-06-27 13:45] VITALS: BP 128/80; PULSE 91; O2SAT 97; BMI 38.5
== END 2024-06-27 14:44 | disposition home or self-care (01) ==
PROVIDERS: PCP Internal Medicine; Visit Provider Internal Medicine
DX: E53.8 Deficiency of other specified B group vitamins (principal); E55.9 Vitamin D deficiency, unspecified; E66.9 Obesity, unspecified; Z68.38 Body mass index [BMI] 38.0-38.9, adult; E61.1 Iron deficiency

== ENCOUNTER 2024-06-27 13:28 | Outpatient (REF) | payer MEDICARE, SELFPAY ==
[2024-06-27 16:19] LABS: MANUAL DIFF FLAG NO
[2024-06-27 16:24] LABS: Basophils Absolute Auto 0.1 X10*3/uL (0.0-0.2); Basophils Percent Auto 1.2 % (0-2); Eosinophils Absolute Auto 0.1 X10*3/uL (0.0-0.4); Eosinophils Percent Auto 1.2 % (0-4); Hematocrit 39.6 % (37.0-47.0); Hemoglobin 12.8 g/dl (12.0-16.0); Imm Gran Abs Auto 0.01 X10*3/uL (0.00-0.03); Imm Gran Pct Auto 0.2 % (0.0-0.4); Lymphocytes Absolute Auto 1.8 X10*3/uL (1.2-4.9); Mean Corpuscular HGB Conc 32.3 g/dl (31.0-35.0); Mean Corpuscular Hemoglobin 25.7 pg (27.0-33.0); Mean Corpuscular Volume 79.5 fL (80.0-98.0); Mean Platelet Volume 10.6 fL (9.4-12.3); Monocytes Absolute Auto 0.5 X10*3/uL (0.1-1.2); Monocytes Percent Auto 9.7 % (2-11); Neutrophils Absolute Auto 2.8 x10*3/uL (2.0-8.3); Neutrophils Percent Auto 53.7 % (45-73); Platelet Count 239 X10*3/uL (160-400); Red Blood Count 4.98 X10*6/uL (4.20-5.50); Red Cell Distribution Width 14.7 % (11.0-16.0); White Blood Count 5.1 X10*3/uL (4.8-10.8)
[2024-06-27 16:43] LABS: Iron 36 mcg/dL (30-160); Percent Iron Saturation 9 % (15-50); Total Iron Binding Capacity 394 mcg/dL (228-428); Unsaturated Iron Binding 358 ug/dL
[2024-06-27 17:02] LABS: Vitamin D 25-OH Total 31.2 ng/mL (>30)
[2024-06-27 17:19] LABS: Folate 10.2 ng/mL (> or = 4.0); Vitamin B12 > 2000 pg/mL (200-900)
== END 2024-06-27 13:29 | disposition home or self-care (01) ==
LOC: HO.HMGCLDS 13:28
PROVIDERS: PCP Internal Medicine; Visit Provider Internal Medicine
DX: E53.8 Deficiency of other specified B group vitamins (principal); E55.9 Vitamin D deficiency, unspecified; E61.1 Iron deficiency; E66.9 Obesity, unspecified; Z68.38 Body mass index [BMI] 38.0-38.9, adult
CPT/HCPCS: 36415; 82306; 82607; 82746; 83540; 85025; 96127; 99212

== ENCOUNTER 2025-01-23 09:39 | Outpatient (REF) | payer MEDICARE, SELFPAY ==
[2025-01-23 13:26] LABS: MANUAL DIFF FLAG NO
[2025-01-23 13:33] LABS: Basophils Absolute Auto 0.1 X10*3/uL (0.0-0.2); Basophils Percent Auto 1.2 % (0-2); Eosinophils Percent Auto 0.9 % (0-4); Hematocrit 40.1 % (37.0-47.0); Hemoglobin 12.8 g/dl (12.0-16.0); Imm Gran Abs Auto 0.01 X10*3/uL (0.00-0.03); Imm Gran Pct Auto 0.2 % (0.0-0.4); Lymphocytes Absolute Auto 1.3 X10*3/uL (1.2-4.9); Lymphocytes Percent Auto 29.9 % (20-40); Mean Corpuscular HGB Conc 31.9 g/dl (31.0-35.0); Mean Corpuscular Hemoglobin 25.9 pg (27.0-33.0); Mean Platelet Volume 10.9 fL (9.4-12.3); Monocytes Absolute Auto 0.4 X10*3/uL (0.1-1.2); Monocytes Percent Auto 8.4 % (2-11); NRBC Pct Auto 0.5 /100WBC (0.0-0.2); Neutrophils Absolute Auto 2.5 x10*3/uL (2.0-8.3); Neutrophils Percent Auto 59.4 % (45-73); Platelet Count 236 X10*3/uL (160-400); Red Blood Count 4.95 X10*6/uL (4.20-5.50); Red Cell Distribution Width 14.7 % (11.0-16.0); White Blood Count 4.3 X10*3/uL (4.8-10.8)
[2025-01-23 14:07] LABS: Iron 49 mcg/dL (30-160); Percent Iron Saturation 13 % (15-50); Total Iron Binding Capacity 372 mcg/dL (228-428); Unsaturated Iron Binding 323 ug/dL
[2025-01-23 14:18] LABS: Vitamin D 25-OH Total 24.6 ng/mL (>30)
[2025-01-23 14:35] LABS: Folate 5.6 ng/mL (> or = 4.0); Vitamin B12 256 pg/mL (200-900)
== END 2025-01-23 09:40 | disposition home or self-care (01) ==
LOC: HO.HMGCLDS 09:39
PROVIDERS: PCP Internal Medicine; Visit Provider Internal Medicine
DX: Z00.00 Encounter for general adult medical examination without abnormal findings (principal); E61.1 Iron deficiency; E55.9 Vitamin D deficiency, unspecified; E66.9 Obesity, unspecified; Z68.34 Body mass index [BMI] 34.0-34.9, adult; E53.8 Deficiency of other specified B group vitamins; E78.5 Hyperlipidemia, unspecified
CPT/HCPCS: 36415; 82306; 82607; 82746; 83540; 85025; 96127

== ENCOUNTER 2025-01-23 09:39 | Outpatient (AMB) | payer MEDICARE, SELFPAY ==
--- NOTE | 2025-01-23 09:42 | AM.OFFVISMDC ---
Intake Vital Signs 01/23/25 09:46 Height 5 ft 8.5 in Weight 232 lb BMI 34.8 BP 116/74 Blood Pressure Location Lt brachial Position Sitting Respiration 18 Pulse 77 Pulse Source Pulse Oximeter Temp 98.2 F Temp Source Oral Pulse Oximetry (%) 98 Oxygen Delivery Method Room Air Intake Visit Reasons: SWV Allergies amoxicillin Allergy (Unknown, Verified 01/23/25 09:53) unknown oxycodone [Percocet] Allergy (Unknown, Verified 01/23/25 09:53) unknown penicillin V Allergy (Unknown, Verified 01/23/25 09:53) unknown Sulfa (Sulfonamide Antibiotics) Allergy (Unknown, Verified 01/23/25 09:53) unkown latex Adverse Reaction (Verified 01/23/25 09:53) rash Medication List - Last Reconciled 01/23/25 by Milana Hester MD calcium carbonate (Calcium 500) PO compr.stocking,knee,long,large As directed melatonin 10 mg PO BEDTIME PRN multivitamin with iron PO pravastatin 40 mg PO DAILY tirzepatide (weight loss) (Zepbound) 7.5 mg (0.5 mL) subcut QWEEK HPI SWV HPI Details Initiated the conversation about Advanced Directives. Advanced Directives help? patients prepare for current and future decisions about their medical treatment? and place of care. Discussed with patient that it is a process where a patients? current condition and prognosis are reviewed, their wishes for information? regarding their illness are elicited, and likely medical dilemmas are presented? and options discussed. The form can be amended as needed, reviewed yearly and? make changes as needed IPPE/AWV ? year old presents? for her ? Annual? Wellness Visit, initial visit.? Medical / Social History Reviewed? Past Medical History ?Yes? . ? [place]? of Care / Care Team list updated ?Yes . ? Surgical/Hospitalization? History ?Yes . ? Current Medications? (including OTC and supplements) ?Yes . ? Family History ?Yes? . ? Tobacco? Control form ?Yes . ? AUDIT-C (Alcohol use) form? ?Yes . ? Illicit drug use in Social? History ?Yes . ? Current diagnosis of? depression? ?No ? Appropriate PHQ2/PHQ9? completed ?Yes . ? Data entered by ?Medical? Web Worker and reviewed by provider ? Fall Risk ? Fall? History? Have you had any falls with? injury in the past year? ?No . ? Have you had two or more? falls in the past year? ?No . ? Fall Risk Assessment: ?No? falls in the past year . ? HRA filled out by? the patient, reviewed by Provider and scanned. ? IPPE/AWV ? Balance? [place]? ?Yes . ? Tandem? walk ?Yes . ? Walk and? Turn ?Yes . ? Rise from? sit to stand ?Yes . ?Vision? Corrective? lens ?Yes ? Vision? screen ? Up-to-date, has an appointment [] for vision? screening and glaucoma screening ?Hearing? Whisper? test ?pass .? Initiated the conversation about Advanced Directives. Advanced Directives help? patients prepare for current and future decisions about their medical treatment? and place of care. Discussed with patient that it is a process where a patients? current condition and prognosis are reviewed, their wishes for information? regarding their illness are elicited, and likely medical dilemmas are presented? and options discussed. The form can be amended as needed, reviewed yearly and? make changes as needed Written? Plan?Completed. See Patient? Documents. [facility] Medical History Hyperlipidemia Vitamin B 12 deficiency Microhematuria Annual physical exam Tinnitus FH: total knee replacement Osteoarthritis, knee Iron deficiency anemia Asthma Osteopenia Surgical History S/P gastric bypass History of esophagogastroduodenoscopy (EGD) H/O colonoscopy Family History Father Cancer Mother No problems noted. Social History Housing: House Patient Tobacco Use Status: Never used Tobacco e-Cigarette/Vaping Use: Never Used Second Hand Smoke Exposure: No service: No Current occupational status: employed Current occupational exposures/hazards: No Cognitive needs: No Hearing needs: No Vision needs: No Questionnaire Medicare Wellness Checkup [age] What gender do you identify with?: female During the past 4 weeks, how much have you been bothered by emotional problems such as feeling anxious, depressed, irritable, sad or downhearted, and blue?: moderately During the past 4 weeks, has your physical & emotional health limited your social activities with family, friends, neighbors, or groups?: not at all During the past 4 weeks, how much bodily pain have you generally had?: no pain During the past 4 weeks, was someone available to help you if you needed & wanted help?: yes, as much as I wanted During the past 4 weeks, what was the hardest physical activity you could do for at least 2 minutes?: moderate Can you get to places out of walking distance without help? (For eg., can you travel alone on buses, taxis or drive your car?): Yes Can you go shopping for groceries or clothes without someone's help?: Yes Can you prepare your own meals?: Yes Can you do your housework without help?: Yes Because of any health problems, do you need the help of another person with your personal care needs such as eating, bathing, dressing or getting around the house?: No Can you handle your own money without help?: Yes During the past 4 weeks, how would you rate your health in general?: good During the past 4 weeks how have things been going for you?: pretty well Are you having difficulties driving your car?: no Do you always fasten your seat belt when you are in a car?: yes, usually During past 4 weeks, have you been bothered by the following: never: Falling or dizzy when standing up, Sexual problems?, Trouble eating well?, Teeth or denture problems? and Problems using the telephone? and often: Tiredness or fatigue? Have you fallen 2 or more times in the past year?: No Are you afraid of falling?: No Are you a smoker?: no During the past 4 weeks, how many drinks of wine, beer, or other alcoholic beverages did you have?: no alcohol at all Do you exercise for about 20 minutes 3 or more times a week?: yes, some of the time Have you been given information to help with the following?: no: Hazards in your house that might hurt you? and no: Keeping track of your medications? How often do you have trouble taking medicines the way you have been told to take them?: I always take medicine as prescribed How confident are you that you can control & manage most of your health problems?: very confident What is your race?: White Mini Mental State Exam (MMSE) Orientation What is the (year) (season) (date) (day) (month)?: year, season, date, day and month Where are we (state) (county) (town or city) (hospital) (floor)?: state, county, town or city, hospital/clinic and floor Registration Name of 3 unrelated objects clearly and slowly, then ask patient to repeat all 3 of them. (1st repeat determines score. Make sure they can repeat all three): object 1, object 2 and object 3 Attention & Calculation (CHOOSE ONE) Spell WORLD backwards (DLROW): 5 letters Recall Ask patient to repeat the 3 items from question #3.: object 1, object 2 and object 3 Language Show patient a wristwatch & ask what it is. Repeat for pencil.: watch and pencil Ask the patient to repeat the phrase 'No ifs, ands, or buts' after you.: correct Ask the patient to 'take a piece of paper with their right hand' 'fold paper in half' 'place paper on floor': take paper in right hand, fold paper in half and place paper on floor Print the sentence 'CLOSE YOUR EYES' on a piece. If patient actually closes eyes then score.: followed written direction Give patient a blank piece of paper & ask to write a sentence. Score if it contains a noun & verb.: sentence contains subject and verb Score Score: 29 PHQ-9 Over the last 2 weeks, how often have you been bothered by any of the following problems? 1. Little interest or pleasure in doing things: not at all 2. Feeling down, depressed, or hopeless: not at all 3. Trouble falling or staying asleep, or sleeping too much: several days 4. Feeling tired or having little energy: several days 5. Poor appetite or overeating: several days 6. Feeling bad about yourself - or that you are a failure or have let yourself or your family down: not at all 7. Trouble concentrating on things, such as reading the newspaper or watching television: not at all 8. Moving or speaking so slowly that other people could have noticed. Or the opposite - being so fidgety or restless that you have been moving around a lot more than usual: not at all 9. Thoughts that you would be better off or of hurting yourself in some way: not at all Total score: 3 Depression Screening Interpretation: Negative Depression Screening Done: Yes 39383 - PHQ-9 Billing: Yes Source: Developed by Drs. Roebrto Muniz, Kim Pat, Lalo Deng and colleagues, with an educational ivonne from [employer]. Review of Systems Const All systems reviewed & are unremarkable except as noted in HPI and below Eyes Reports no additional complaints ENT Reports no additional complaints Card Reports no additional complaints Resp Reports no additional complaints GI Reports no additional complaints Physical Exam Vital Signs: Last Vital Signs Temp 98.2 F 01/23/25 09:46 Pulse 77 01/23/25 09:46 Resp 18 01/23/25 09:46 BP 116/74 01/23/25 09:46 Pulse Ox 98 01/23/25 09:46 Oxygen Delivery Method Room Air 01/23/25 09:46 BMI result Body Mass Index 34.8 Const General: no acute distress HEENT Head: Yes normal to inspection Ears: TM's normal bilaterally Eyes General: appearance normal, both eyes and all related structures Neck Neck: Yes no lymphadenopathy and Yes supple Resp Effort & Inspection: normal respiratory effort Auscultation: clear to auscultation bilaterally Cardio Rhythm: regular rhythm Heart sounds: S1 normal heart sound present and S2 normal heart sound present GI Inspection: Yes normal to inspection Palpation (GI): Soft to palpation Percussion: Yes normal to percussion Auscultation: normal bowel sounds Extrem General: Yes no clubbing, cyanosis or edema Assessment & Plan Assessment & Plan (1) Iron deficiency: Code(s): E61.1 - Iron deficiency Plan: Continue iron supplement check the level (2) Vitamin D deficiency: Code(s): E55.9 - Vitamin D deficiency, unspecified Plan: Continue vitamin-D (3) Annual physical exam: Code(s): Z00.00 - Encounter for general adult medical examination without abnormal findings Plan: Well-balanced diet regular exercise discussed with the patient she is up-to-date with the mammogram colonoscopy and Pap 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 She has been decreasing caloric intake increasing physical activity. Patient will increase Zepbound to 7.5 mg weekly and follow-up in 3 months Orders: Orders IRON PROFILE Today E53.8 - Deficiency of other specified B group vitamins, E55.9 - Vitamin D deficiency, unspecified, E61.1 - Iron deficiency, Z00.00 - Encounter for general adult medical examination without abnormal findings Vitamin D 25-OH Total Today E53.8 - Deficiency of other specified B group vitamins, E55.9 - Vitamin D deficiency, unspecified, E61.1 - Iron deficiency, Z00.00 - Encounter for general adult medical examination without abnormal findings Comprehensive [place]. Panel Fast 1 Year E53.8 - Deficiency of other specified B group vitamins, E55.9 - Vitamin D deficiency, unspecified, E61.1 - Iron deficiency, E78.5 - Hyperlipidemia, unspecified, Z00.00 - Encounter for general adult medical examination without abnormal findings Lipid Panel 1 Year E53.8 - Deficiency of other specified B group vitamins, E55.9 - Vitamin D deficiency, unspecified, E61.1 - Iron deficiency, E78.5 - Hyperlipidemia, unspecified, Z00.00 - Encounter for general adult medical examination without abnormal findings TSH reflex Free T4 Today E53.8 - Deficiency of other specified B group vitamins, E55.9 - Vitamin D deficiency, unspecified, E61.1 - Iron deficiency, E78.5 - Hyperlipidemia, unspecified, Z00.00 - Encounter for general adult medical examination without abnormal findings Vitamin B12 and Folate 1 Year E53.8 - Deficiency of other specified B group vitamins, E55.9 - Vitamin D deficiency, unspecified, E61.1 - Iron deficiency, E78.5 - Hyperlipidemia, unspecified, Z00.00 - Encounter for general adult medical examination without abnormal findings Complete Blood Count Auto Diff 1 Year E53.8 - Deficiency of other specified B group vitamins, E55.9 - Vitamin D deficiency, unspecified, E61.1 - Iron deficiency, E78.5 - Hyperlipidemia, unspecified, Z00.00 - Encounter for general adult medical examination without abnormal findings Vitamin D 25-OH Total 1 Year E53.8 - Deficiency of other specified B group vitamins, E55.9 - Vitamin D deficiency, unspecified, E61.1 - Iron deficiency, E78.5 - Hyperlipidemia, unspecified, Z00.00 - Encounter for general adult medical examination without abnormal findings IRON PROFILE 1 Year E53.8 - Deficiency of other specified B group vitamins, E55.9 - Vitamin D deficiency, unspecified, E61.1 - Iron deficiency, E78.5 - Hyperlipidemia, unspecified, Z00.00 - Encounter for general adult medical examination without abnormal findings Medications: New tirzepatide (weight loss) (Zepbound) 7.5 mg (0.5 mL) subcut QWEEK 6 mL 1RF Discontinued tirzepatide (weight loss) Discontinued Reason: Doctor's Order 5 mg (0.5 mL) subcut QWEEK 2 mL 2RF Quality Reporting (2019) Depression/Bipolar (159/160/161/177) PHQ-9: Total score: 3 Coding Level of Care Code Medicare Subsequent (G0439) Diagnoses Iron deficiency E61.1 Vitamin D deficiency E55.9 Annual physical exam Z00.00 Obesity E66.9 CPT Codes Advance Care Planning - Advance Care Planning discussion: On file, no changes ([id number]) Advance Care Planning - Time spent: 1-15 minutes, on File ([id number]) Additional Codes PHQ-9 - 53434 - PHQ-9 Billing: Yes ([id number]) Advance Care Planning Advance Care Planning discussion: On file, no changes Forms completed: Health Care Proxy Time spent: 1-15 minutes, on File Did not discuss due to Cultural/Spiritual beliefs: Yes
[2025-01-23 09:46] VITALS: BP 116/74; PULSE 77; RESP 18; TEMP 36.8; O2SAT 98; BMI 34.8
--- OUTSIDE RECORDS SUMMARY | 2025-01-23 10:15 | XMS_ITS | Clinical Summary ---
Author Organization [facility] Address [address] [place] [address] Care Team Providers Care Mesh Man Name Role Phone Unavailable Primary Care Provider Unavailabl e Social History Tobacco Use Types Packs/Day Years Used Date Smoking Tobacco: Never Assessed Comments Unknown Sex and Gender Information Value Date Recorded Sex Assigned at Not on file Legal Sex Female 11:16 PM EST Gender Identity Not on file Sexual Orientation Not on file Plan of Treatment Health Maintenance Due Date Last Done Comments Breast Cancer Screening 1955 DTaP,Tdap,and Td Vaccines (1 - Tdap) 1975 Pneumococcal Vaccine: 50+ Ye ars (1 of 1 - PCV) 2006 Zoster Vaccines (1 of 2) 2006 COVID-19 Vaccine ( - 2023-2 5 season) 2024 Influenza Vaccine (Season Ended) 2025 RSV Immunization Adult Patie nts (1 - 1-dose 75+ series) 2031 HIB Vaccines Aged Out No longer eligi ble based on patient's age to complete this topic HPV Vaccines Aged Out No longer eligi ble based on patient's age to complete this topic Hepatitis A Vaccines Aged Out No long er eligible based on patient's age to complete this topic Hepatitis B Vaccines Aged Out No long er eligible based on patient's age to complete this topic IPV Vaccines Aged Out No longer eligi ble based on patient's age to complete this topic MMR Vaccines Aged Out No longer eligi ble based on patient's age to complete this topic Meningococcal ACWY Vaccine Aged Out N o longer eligible based on patient's age to complete this topic Meningococcal B Vaccine Aged Out No l onger eligible based on patient's age to complete this topic RSV Immunization Patients Un lilia 20 months Aged Out No longer eligible b ased on patient's age to complete this topic Varicella Vaccines Aged Out No longer eligible based on patient's age to complete this topic
== END 2025-01-23 10:22 | disposition home or self-care (01) ==
LOC: HO.HMCC 09:40
PROVIDERS: PCP Internal Medicine; Visit Provider Internal Medicine
DX: Z00.00 Encounter for general adult medical examination without abnormal findings (principal); E61.1 Iron deficiency; E66.9 Obesity, unspecified; Z68.34 Body mass index [BMI] 34.0-34.9, adult; E55.9 Vitamin D deficiency, unspecified

== ENCOUNTER 2025-04-24 09:12 | Outpatient (REF) | payer MEDICARE, SELFPAY ==
--- OUTSIDE RECORDS SUMMARY | 2023-12-14 05:15 | XMS_ITS | Continuity of Care Document ---
Author Organization [facility] Address [address] [place] [id number] Phone Care Team Providers Care Lead Teacher Name Role Phone Jak BENEDICT, RVT, RPVI, Roberto Unavailable U navailable Allergies, Adverse Reactions, Alerts Substance Reaction Status Criticality adhesive Active No Information latex Active No Information Sulfa (Sulfonamide Antibiotics) Active No Information Medications Medication Instructions Dosage Effective Dates (start - stop) Status Comments pravastatin 20 mg tablet - Activ e Co Q-10 10 mg capsule - Active vitamin B complex capsule - Acti ve Vitamin C 500 mg capsule,extended release - Active Vitamin D3 10 mcg (400 unit) capsule - Active Coral Calcium 185 mg-50 mg-100 unit capsule - Active Procedures Procedure Date Duplex Scan-extrem Veins; Comp- CT & MA Office/Outpt E&M Established 15 Mins- CT & [place] Duplex Scan-extrem Veins; Uni/ CT & MA M Inj Scleros Solut; Mx Veins 1- CT & MA M Ultrason Guidan Needle Bx-rad- CT & MA M Duplex Scan-extrem Veins; Uni/ CT & MA M Endovenous Laser, 1st Vein Endovenous Rf, 1st Vein Ultrason Guidan Needle Bx-rad 4 Inj Sclerosing Solution; Sngl 4 Duplex Scan-extrem Veins; Uni/ 24 Inj Scleros Solut; Mx Veins 1 4 Ultrason Guidan Needle Bx-rad 4 Duplex Scan-extrem Veins; Uni/ 24 Endovenous Laser, 1st Vein Endovenous Laser, 1st Vein Offic/outpt E&m Estab 5 Min Trial - Tele medicine Office/Oupt E&M New Pt 45 Mins Duplex Scan-extrem Veins; Comp Advance Directives Directive Yes / No Effective Date File Name No Information Encounters Encounter Description Practice Location Reason(s) For Visit Diagnoses Date Provider Providers Copied on Encounter [facility] MD DANIELSON, [address] [place] [address] Dr Quan [address], [id number], [place] tel:[phone] [facility] Encounter for follow-up examination after completed treatment for conditions other than malignant neoplasmChroni c venous hypertension (idiopathic) with other complications of bilateral lower extremity Nov- 4 Jak BENEDICT RVT, RPVI Robert. [address] [place] [address], [place], [place], [id number] , [place]. tel:[phone] Referring Provider: Milana Hester MD S, [address] [place] [address], [place], [address]. tel:[phone] Office/Outpt E&M Established 15 Mins- CT & [place] [facility], [address] [place] [address] Dr Quan [address] [place], [id number], [place] tel:[phone] [facility] Chronic venous hypertension (idiopathic) without complications of bilateral lower extremityCramp and spasmLocalized edema Nov- 4 Jak BENEDICT RVT, RPVI Robert. [address] [place] [address], [place], [place], [id number] , [place]. tel:[phone] Referring Provider: Milana Hester MD S, [address] [place] [address], [place], [address]. tel:[phone] [facility] MD DANIELSON, [address] [place] [address] Dr Quan [address] [place], [id number], [place] tel:[phone] [facility] [place] [facility] Encounter for follow-up examination after completed treatment for conditions other than malignant neVaricose veins of right lower extremity with pain 4 Jak BENEDICT RVT, ABHINAV Mejia. [address], [address], [place], [place], [id number] , [place]. tel:[phone] Referring Provider: Milana Hester MD S, [address] [place] [address], [place], [address]. tel:[phone] [facility], [address] [place] [address] [address] [place], [id number], [place] tel:[phone] [facility] - [facility] Chronic venous hypertension (idiopathic) with inflammation of right lower extremity 4 Jak BENEDICT RVT, ABHINAV Mejia. [address] [place] [address], [address], [place], [place], [id number] , [place]. [phone] Referring Provider: Milana Hester MD S, [address] [place] [address], [place], [address]. tel:[phone] [facility], [address] [place] [address] [address] [place], [id number], [place] tel:[phone] [facility] Encounter for follow-up examination after completed treatment for conditions other than malignant neChronic venous hypertension (idiopathic) with inflammation of right lower extremity 4 Jak BENEDICT RVT, ABHINAV Mejia. [address], [address], [place], [place], [id number] , [place]. tel:[phone] Referring Provider: Milana Hester MD S, [address] [place] [address], [place], [address]. tel:[phone] [facility], [address] [place] [address] Dr Quan [address], [id number], [place] tel:[phone] [facility] - [facility] Varicose veins of right lower extremity with other complications 4 Jak BENEDICT RVT, ABHINAV Mejia. [address], [address], [facility], [place], [id number] , [place]. [phone] Referring Provider: Milana Hester MD S, [address] [place] [address], [address]. tel:[phone] [facility], [address] [place] [address] [address] [place], [id number], [place] tel:[phone] [facility] [place] [facility] Varicose veins of right lower extremity with other complications Oct- 4 Jak BENEDICT RVT, ABHINAV Mejia. [address], [address], [place], [place], [id number] , [place]. [phone] Referring Provider: Milana Hester MD S, [address] [place] [address], [address]. tel:[phone] [facility], [address] [place] [address] [address] [place], [id number], [place] tel:[phone] [facility] [place] [facility] Encounter for follow-up examination after completed treatment for conditions other than malignant neoplasmVarico se veins of left lower extremity with pain Oct- 4 Jak BENEDICT RVT, ABHINAV Mejia. [address], [address], [facility], [place], [id number] , [place]. [phone] Referring Provider: Milana Hester MD S, [address] [place] [address], [place], [address]. tel:[phone] [facility], [address] [place] [address] [address] [place], [id number], [place] tel:[phone] [facility] [place] [facility] Varicose veins of left lower extremity with other complications Oct-0 4 Jak BENEDICT RVT, ABHINAV Mejia. [address], [address], [facility], [place], [id number] , [place]. [phone] Referring Provider: Milana Hester MD S, [address] [place] [address], [address]. tel:[phone] [facility] MD DANIELSON, [address] [place] [address] Dr Quan [address] [place], [id number], [place] tel:[phone] [facility] [place] [facility] Encounter for follow-up examination after completed treatment for conditions other than malignant ne 4 Jak BENEDICT RVT, ABHINAV Mejia. [address], [address], [place], [place], [id number] , [place]. tel:[phone] Referring Provider: Milana Hester MD S, [address] [place] [address], [place], [address]. tel:[phone] [facility], [address] [place] [address] Dr Quan [address] [place], [id number], [place] tel:[phone] [facility] [place] [facility] Varicose veins of left lower extremity with other complications 4 Jak BENEDICT RVT, ABHINAV Mejia. [address], [address], [place], [place], [id number] , [place]. tel:[phone] Referring Provider: Milana Hester MD S, [address] [place] [address], [place], [address]. tel:[phone] [facility] MD DANIELSON, [address] [place] [address] Dr Quan [address] [place], [id number], [place] tel:[phone] [facility] [place] [facility] Varicose veins of left lower extremity with other complications 4 Jak BENEDICT RVT, RPVI Robert. [facility], [address], [place], [place], [id number] , [place]. tel:[phone] Referring Provider: Milana Hester MD S, [address] [place] [address], [place], [address]. tel:[phone] Offic/outpt E&m Estab 5 Min Trial - Telemedicine [facility] MD DANIELSON, [address] [place] [address] Dr Quan [address] [place], [id number], [place] tel:[phone] [facility] [place] [facility] Localized edemaCramp and spasmVenous insufficiency (chronic) (peripheral)Fl ail joint, unspecified joint 3 Jak BENEDICT, RVT, ABHINAV Mejia. [address] [place] [address], [place] [address], [place], [place], [id number] , [place]. tel:[phone] Referring Provider: Milana Hester MD S, [address] [place] [address], [place], [address]. tel:[phone] Office/Oupt E&M New Pt 45 Mins [facility], [address] [place] [address] [facility] [address] [place], [id number], [place] tel:[phone] [facility] [place] [facility] Chronic venous hypertension (idiopathic) with other complications of bilateral lower extremityLocal ized edemaCramp and spasmVenous insufficiency (chronic) (peripheral)Fl ail joint, unspecified joint 3 Vidal BENEDICT FACS T ABHINAV Jones. [address] [place] [address], [place], [address], [place]. [phone] Referring Provider: Milana Hester MD S, [address] [place] [address], [place], [address]. tel:[phone] [facility], [address] [place] [address] Dr Quan [address] [place], [id number], [place] tel:[phone] [facility] - [facility] Chronic venous hypertension (idiopathic) with other complications of bilateral lower extremity 3 Vidal BENEDICT FACS T ABHINAV Jones. [address] [place] [address], [place] [address], [place], [address], [place]. [phone] Referring Provider: Milana Hester MD S, [address] [place] [address], [place], [address]. tel:[phone] Family History Family Member Type Diagnosis Age At Onset No Information Payers Payer name Insurance type Covered libertarian ID Authoriza tion(s) [facility] AAR Medic are Complete CI [id number] Social History Type Description Quantity Date Captured Comments Sex Female Smoking Status No Information Chief Complaint And Reason For Visit No Information Reason For Referral Reason For Referral No Information Plan Of Treatment Date Type Action Status Goal Diet education completed Goal Diet education completed Goal Diet education completed Goal Diet education completed Referral Ordered: Weight management: Referral to physician timeframe: 3 Months (related to Body mass index (BMI) 37.0-37.9, adult) ordered Referral Ordered: Milana Hester MD timeframe: 3 Months (related to Essential (primary) hypertension) ordered Referral Ordered: Weight management: Referral to physician timeframe: 3 Months (related to Body mass index (BMI) 37.0-37.9, adult) ordered Referral Ordered: Milana Hester MD timeframe: 3 Months (related to Essential (primary) hypertension) ordered History Of Present Illness Encounter Date Complaint History Of Prese nt Illness No Information Functional Status Date Functional Assessmen t No Information Instructions Date Instruction Additional Infor mation Compression stocking usage as conservative measure Related to Chronic venous hypertension (idiopathic) without complications of bilateral lower extremity Patient education booklet given Related to Chronic venous hypertension (idiopathic) without complications of bilateral lower extremity Lifestyle education Related to B alisa mass index (BMI) 37.0-37.9, adult Giving Encouragement to exercise Related to Body mass index (BMI) 37.0-37.9, adult Diet education Related to Body mass index (BMI) 37.0-37.9, adult Lifestyle education Related to E ssential (primary) hypertension Exercise education Related to Es sential (primary) hypertension Diet education Related to Essen tial (primary) hypertension Pre and post instruc tions reviewed and provided Related to Localized edema Patient education booklet given Related to Localized edema Pre and post instruc tions reviewed and provided Related to Chronic venous hypertension (idiopathic) with other complications of bilateral lower extremity Patient education booklet given Related to Chronic venous hypertension (idiopathic) with other complications of bilateral lower extremity Lifestyle education Related to B alisa mass index (BMI) 37.0-37.9, adult Giving Encouragement to exercise Related to Body mass index (BMI) 37.0-37.9, adult Diet education Related to Body mass index (BMI) 37.0-37.9, adult Lifestyle education Related to E ssential (primary) hypertension Exercise education Related to Es sential (primary) hypertension Diet education Related to Essen tial (primary) hypertension Assessments Type Assessment Date No Information Patient Care Teams Name Effective Dates (start - stop) Status Members No Information
[2025-04-24 13:12] LABS: MANUAL DIFF FLAG NO
[2025-04-24 13:21] LABS: Appearance Urine Turbid; Glucose Urine UA Negative (Negative); PH 5.0 (5.0-9.0); Specific Gravity - Urine 1.025 (1.005-1.025); UMIC TRIGGER UA YES
[2025-04-24 13:31] LABS: Hematocrit 39.6 % (37.0-47.0); Hemoglobin 13.2 g/dl (12.0-16.0); Imm Gran Abs Auto 0.01 X10*3/uL (0.00-0.03); Imm Gran Pct Auto 0.2 % (0.0-0.4); Lymphocytes Absolute Auto 1.4 X10*3/uL (1.2-4.9); Mean Corpuscular HGB Conc 33.3 g/dl (31.0-35.0); Mean Corpuscular Hemoglobin 27.0 pg (27.0-33.0); Mean Corpuscular Volume 81.1 fL (80.0-98.0); NRBC Abs Auto 0.000 X10*3/uL (0.0-0.012); NRBC Pct Auto 0.0 /100WBC (0.0-0.2); Platelet Count 230 X10*3/uL (160-400); Red Blood Count 4.88 X10*6/uL (4.20-5.50); White Blood Count 4.2 X10*3/uL (4.8-10.8)
[2025-04-24 14:05] LABS: Alanine Aminotransferase 8 U/L (0-31); Albumin Level 4.1 g/dL (3.5-5.0); Alkaline Phosphatase 70 U/L (39-117); Anion Gap 13 (12-20); Aspartate Amino Transferase 25 U/L (5-31); Blood Urea Nitrogen 16 mg/dL (9-16); Calcium 8.9 mg/dL (8.4-10.2); Carbon Dioxide 26 mmol/L (22-29); Chloride 104 mmol/L (96-108); Estimated Glomerular Filt Rate 56; Iron 60 mcg/dL (30-160); Percent Iron Saturation 17 % (15-50); Potassium 3.7 mmol/L (3.3-5.1); Sodium 139 mmol/L (135-145); Total Iron Binding Capacity 360 mcg/dL (228-428); Total Protein 7.1 g/dL (6.5-8.0); Unsaturated Iron Binding 300 ug/dL
[2025-04-24 14:12] LABS: Folate 6.8 ng/mL (> or = 4.0); Vitamin B12 282 pg/mL (200-900)
== END 2025-04-24 09:13 | disposition home or self-care (01) ==
LOC: HO.HMGCLDS 09:12
PROVIDERS: PCP Internal Medicine; Visit Provider Internal Medicine
DX: E53.8 Deficiency of other specified B group vitamins (principal); E55.9 Vitamin D deficiency, unspecified; E61.1 Iron deficiency; N39.0 Urinary tract infection, site not specified; K59.00 Constipation, unspecified; Z79.899 Other long term (current) drug therapy
CPT/HCPCS: 36415; 80053; 81001; 82306; 82607; 82746; 83540; 84443; 85025; 96127; 99212

== ENCOUNTER 2025-04-24 09:12 | Outpatient (AMB) | payer MEDICARE, SELFPAY ==
[2025-04-24 09:14] VITALS: BP 118/70; PULSE 70; RESP 18; TEMP 36.8; O2SAT 96; BMI 32.8
--- NOTE | 2025-04-24 09:14 | MHC.PC.OV ---
Vital Signs 04/24/25 09:14 Height 5 ft 8.5 in Weight 219 lb BMI 32.8 BP 118/70 Blood Pressure Location Lt brachial Position Sitting Respiration 18 Pulse 70 Pulse Source Pulse Oximeter Temp 98.2 F Temp Source Oral Pulse Oximetry (%) 96 Oxygen Delivery Method Room Air Intake Visit Reasons: 3m follow up Intake Note: Pt is here today for 3 months follow up visit. Allergies amoxicillin Allergy (Unknown, Verified 04/24/25 09:15) unknown oxycodone (Percocet) Allergy (Unknown, Verified 04/24/25 09:15) unknown penicillin V Allergy (Unknown, Verified 04/24/25 09:15) unknown Sulfa (Sulfonamide Antibiotics) Allergy (Unknown, Verified 04/24/25 09:15) unkown latex Adverse Reaction (Verified 04/24/25 09:15) rash Medication List - Last Reconciled 04/24/25 by Milana Hester MD bisacodyl (Dulcolax (bisacodyl)) PO calcium carbonate (Calcium 500) PO compr.stocking,knee,long,large As directed docusate sodium (Colace) 100 mg PO DAILY melatonin 10 mg PO BEDTIME PRN multivitamin with iron PO pravastatin 40 mg PO DAILY tirzepatide (weight loss) (Zepbound) 7.5 mg (0.5 mL) subcut QWEEK Tobacco use date assessed: 04/24/25 Fall risk assessment: No Falls in past year Last assessed Fall Risk: 04/24/25 Dental Screening Dental Screen Date: 04/24/25 Did you have a dental visit in the last 12 months?: Yes Did you have a dental problem in the last 6 months where you did not have access to dental care?: No Was dental information given to patient?: Patient has dentist HPI 3m follow up HPI Details Pt presents c/o constipation on and off getting worse over the last few months. Patient stopped taking Zepbound 2 weeks ago. She has been to urgent care a few times. Patient has been taking Colace and Dulcolax on and off and having episodes of intermittent diarrhea and constipation. Patient denies hematochezia or melena she reports decreased appetite and occasionally nausea but not vomiting. Patient reports being under lot of stress related to her work and feel overwhelmed taking care of her house. 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 Patient is planned to retired the end of the year. [facility] Medical History Hyperlipidemia Vitamin B 12 deficiency Microhematuria Annual physical exam Tinnitus FH: total knee replacement Osteoarthritis, knee Iron deficiency anemia Asthma Osteopenia Surgical History S/P gastric bypass History of esophagogastroduodenoscopy (EGD) H/O colonoscopy Family History Father Cancer Mother No problems noted. Social History Housing: House Patient Tobacco Use Status: Never used Tobacco e-Cigarette/Vaping Use: Never Used Second Hand Smoke Exposure: No service: No Current occupational status: employed Current occupational exposures/hazards: No Cognitive needs: No Hearing needs: No Vision needs: No Questionnaire PHQ-9 Over the last 2 weeks, how often have you been bothered by any of the following problems? 1. Little interest or pleasure in doing things: not at all 2. Feeling down, depressed, or hopeless: not at all 3. Trouble falling or staying asleep, or sleeping too much: several days 4. Feeling tired or having little energy: not at all 5. Poor appetite or overeating: several days 6. Feeling bad about yourself - or that you are a failure or have let yourself or your family down: not at all 7. Trouble concentrating on things, such as reading the newspaper or watching television: not at all 8. Moving or speaking so slowly that other people could have noticed. Or the opposite - being so fidgety or restless that you have been moving around a lot more than usual: not at all 9. Thoughts that you would be better off or of hurting yourself in some way: not at all Total score: 2 Depression Screening Interpretation: Negative Depression Screening Done: Yes 37572 - PHQ-9 Billing: Yes Source: Developed by Drs. Roberto Muniz, Kim Pat, Lalo Deng and colleagues, with an educational ivonne from [employer]. Thrive Questionnaire Date Thrive assessed: 04/24/25 I am a: Patient What is your living situation today?: I have a steady place to live Within the past 12 months, did the food you bought not last and you didn't have the money to get more?: Never true Within the past 12 months, did you worry whether your food would run out before you got money to buy more?: Never true Do you have trouble paying for medicines?: No Do you have trouble getting transportation to medical appointments?: No Do you have trouble paying your heating and electricity bill?: No Do you have trouble taking care of your child, family member or friend?: No Do you have trouble with day-to-day activities such as bathing, preparing meals, shopping, managing finances, etc.?: No Are you currently unemployed and looking for a job?: No Are you interested in more education?: No Please select the resources that you would like help with: None Currently or been in a relationship where the following occur: No concerns reported THRIVE Score: 0 AUDIT C Alcohol Use Questionnaire (AUDIT-C) 1. How often do you have a drink containing alcohol?: Monthly or less 2. How many drinks containing alcohol do you have on a typical day when you are drinking?: 1 or 2 3. How often do you have six or more drinks on one occasion?: Never Total Score: 1 NBA-7 AMB Questionnaire NBA-7 Date NBA - 7 assessed: 04/24/25 Feeling nervous, anxious, or on edge: 1 = Several days Not being able to stop or control worryin = Several days Worrying too much about different things: 1 = Several days Trouble relaxin = Several days Being so restless that it is hard to sit still: 0 = Not at all Becoming easily annoyed or irritable: 0 = Not at all Feeling afraid as if something awful might happen: 0 = Not at all Total NBA-7 score (0-4 normal; 5-9 mild; 10-14 moderate; 15-21 severe): 4 Source: Developed by Drs. Roberto Muniz, Kim Pat, Lalo Deng and colleagues, with an educational ivonne from [employer]. NBA-7 Assessment Billing NBA-7 Assessment Tool: NBA-7 Assessment 02174 Review of Systems Const All systems reviewed & are unremarkable except as noted in HPI and below Eyes Reports no additional complaints ENT Reports no additional complaints Card Reports no additional complaints Resp Reports no additional complaints GI Reports no additional complaints Reports no additional complaints Musc Reports no additional complaints Physical exam (Primary Care) Vital Signs: Last Vital Signs Temp 98.2 F 04/24/25 09:14 Pulse 70 04/24/25 09:14 Resp 18 04/24/25 09:14 BP 118/70 04/24/25 09:14 Pulse Ox 96 04/24/25 09:14 Oxygen Delivery Method Room Air 04/24/25 09:14 BMI result Body Mass Index 32.8 Tobacco/Smoking Status: Tobacco use Status Tobacco use date assessed 04/24/25 04/24/25 09:21 Patient Tobacco Use Status Never used Tobacco 04/24/25 09:21 e-Cigarette/Vaping Use Never Used 04/24/25 09:21 PHQ-9: PHQ-9 Score PHQ-9: Total score 2 04/24/25 09:21 Depression Screening Interpretation: Negative Thrive Assessment: Date of Thrive Assessment Date Thrive assessed 04/24/25 04/24/25 09:21 Currently or been in a relationship where the following occur: No concerns reported Const General: no acute distress HENMT Head: Yes normal to inspection Face and sinus: Yes normal facial exam Mouth: Normal oral and palatal mucosa present Throat: Yes posterior oropharynx normal Eyes General: appearance normal, both eyes and all related structures Neck Neck: Yes no lymphadenopathy and Yes supple Resp Effort & Inspection: normal respiratory effort Auscultation: clear to auscultation bilaterally Cardio Rhythm: regular rhythm Heart sounds: S1 normal heart sound present and S2 normal heart sound present GI Inspection: Yes normal to inspection Palpation (GI): Soft to palpation Percussion: Yes normal to percussion Auscultation: normal bowel sounds Coding Level of Care Code Est Pt Level 4 (28843) Diagnoses Vitamin B 12 deficiency E53.8 Vitamin D deficiency E55.9 Iron deficiency E61.1 Constipation K59.00 Additional Codes NBA-7 Assessment Billing - NBA-7 Assessment Tool: NBA-7 Assessment 82919 ([id number]) PHQ-9 - 73659 - PHQ-9 Billing: Yes ([id number]) Assessment & Plan Assessment & Plan (1) Vitamin B 12 deficiency: Code(s): E53.8 - Deficiency of other specified B group vitamins Category: Medical Plan: Check vitamin B12 level (2) Vitamin D deficiency: Code(s): E55.9 - Vitamin D deficiency, unspecified Category: Medical Plan: Take vitamin-D level (3) Iron deficiency: Comment: s/p gastric bypass surgery Code(s): E61.1 - Iron deficiency Category: Medical Plan: Check iron count (4) Constipation: Code(s): K59.00 - Constipation, unspecified Category: Medical Plan: Secondary to GLP 1 agonist. Increasing fiber and fluid intake and physical activity discussed with the patient. She was advised to take Colace regularly and add MiraLax if patient has persistent constipation. She will hold Zepbound for now until her GI symptoms resolve. Orders: Orders Complete Blood Count Auto Diff Today E53.8 - Deficiency of other specified B group vitamins, E55.9 - Vitamin D deficiency, unspecified, E61.1 - Iron deficiency IRON PROFILE Today E53.8 - Deficiency of other specified B group vitamins, E55.9 - Vitamin D deficiency, unspecified, E61.1 - Iron deficiency Vitamin B12 and Folate Today E53.8 - Deficiency of other specified B group vitamins, E55.9 - Vitamin D deficiency, unspecified, E61.1 - Iron deficiency Vitamin D 25-OH Total Today E53.8 - Deficiency of other specified B group vitamins, E55.9 - Vitamin D deficiency, unspecified, E61.1 - Iron deficiency Comprehensive Met. Panel Today E53.8 - Deficiency of other specified B group vitamins, E55.9 - Vitamin D deficiency, unspecified, E61.1 - Iron deficiency TSH reflex Free T4 Today E53.8 - Deficiency of other specified B group vitamins, E55.9 - Vitamin D deficiency, unspecified, E61.1 - Iron deficiency UA w Microscopic Today N39.0 - Urinary tract infection, site not specified Urine Culture Today N39.0 - Urinary tract infection, site not specified
--- OUTSIDE RECORDS SUMMARY | 2025-04-24 09:57 | XMS_ITS | Clinical Summary ---
Author Organization [facility] ity Address [address] [place] [address] Care Team Providers Care Broker Assistant Name Role Phone Unavailable Primary Care Provider [...] 2006 Zoster Vaccines (1 of 2) 2006 Depression Screening 08/20/2024 COVID-19 Vaccine (1 - 2023-2 5 season) 2025 Influenza Vaccine (#1) 2025 RSV Immunization Adult Patie nts (1 [...]
--- OUTSIDE RECORDS SUMMARY | 2025-04-24 09:57 | XMS_ITS | Patient Health Record ---
Author Organization [facility] Address [address] [place] [address] Care Team Providers Care Dowel Pin Worker Name Role Phone Milana Hester Primary Care Provider Unavailabl e Allergies Allergen (clinical drug ingredient) Drug/Non Drug Allergy documented on EMR Reaction Allergy Type Onset Date Status amoxicillin Amoxicillin Unknown Drug Allergy Act karl Latex Latex Unknown Allergy Active oxycodone Oxycodone Unknown Drug Allergy Active Substance with sulfonamide structure and antibacterial mechanism of action (substance) Sulfa Antibiotics Unknown Drug Allergy Active Penicillin Unknown Drug Allergy Active Reason For Referral No Information Medications Medication SIG (Take, Route, Frequency, Duration) Notes Start Date End Date Status Multivitamin - 1 tablet Orally Once a day Active Ciclopirox 8 % 1 application Freight Hustler ally to toenail Once a day; Duration: 365 days 01/03/2023 Active Calcium 500 MG 1 tablet with meals Orally Twice a day Active Iron 325 (65 Fe) MG 1 tablet Orally Once a day Active Vitamin D 50 MCG (1999) 1 tablet Oral ly Once a day Active Plan Of Treatment Pending Test Test Name Order Date CULTURE, FUNGAL (SKIN,NAIL,HAIR) 023 Insurance Providers Payer Name Payer Address Payer Phone Subscriber Number Group Number Insured Name Patient Relationship to Insured Coverage Start Date Coverage End Date [employer] Medicare [id number] [address] [address] [place] [phone] [id number] Lydia Mcneil Self - patient is the insured Medical (General) History Medical History History ICD Code asthma hyperlipidemia iron deficiency anemia microhematuria osteoarthritis knee osteopenia tinnitus vitamin B 12 deficiency vitamin D deficiency chronic kidney disease? History of nephr olithiasis lupus ? Has only been treated on prednis one blasts. No rheum. Surgical History Surgery Date(Month/Year) colonoscopy esophagogastroduodenoscopy (EGD) gastric bypass 2 emergency kidney surgeries left knee replacement Hospitalization History Reason Date(Month/Year) gastric bypass left knee replacement 2 emergency kidney surgeries: removal of large stone vaginal delivery (girl) 1981 vaginal delivery (boy) 1979
== END 2025-04-24 10:28 | disposition home or self-care (01) ==
LOC: HO.HMCC 09:13
PROVIDERS: PCP Internal Medicine; Visit Provider Internal Medicine
DX: E53.8 Deficiency of other specified B group vitamins (principal); E55.9 Vitamin D deficiency, unspecified; E61.1 Iron deficiency; K59.00 Constipation, unspecified

== ENCOUNTER 2025-08-11 12:08 | Outpatient (AMB) | payer MEDICARE, SELFPAY ==
[2025-08-11 12:12] VITALS: BP 122/76; PULSE 68; O2SAT 99; BMI 32.8
--- NOTE | 2025-08-11 12:12 | A.OFFPC_ITS ---
Vital Signs 08/11/25 12:12 Height 5 ft 8.5 in Weight 219 lb BMI 32.8 BP 122/76 Blood Pressure Location Lt brachial Position Sitting Pulse 68 Pulse Source Pulse Oximeter Pulse Oximetry (%) 99 Intake Visit Reasons: Afib Allergies amoxicillin Allergy (Unknown, Verified 08/11/25 12:13) unknown oxycodone (Percocet) Allergy (Unknown, Verified 08/11/25 12:13) unknown penicillin V Allergy (Unknown, Verified 08/11/25 12:13) unknown Sulfa (Sulfonamide Antibiotics) Allergy (Unknown, Verified 08/11/25 12:13) unkown latex Adverse Reaction (Verified 08/11/25 12:13) rash Medication List - Last Reconciled 08/11/25 by Milana Hester MD compr.stocking,knee,long,large As directed Tobacco use date assessed: 04/24/25 Fall risk assessment: No Falls in past year Last assessed Fall Risk: 08/11/25 Dental Screening Dental Screen Date: 04/24/25 HPI Afib HPI Details HPI Comments History of Present Illness Details Patient presents complaining of 1 week of epigastric abdominal discomfort nausea bloating constipation and 4 days of gross hematuria which resolved yesterday. Patient denies fever chills dysuria urinary frequency hematochezia melena pelvic pain vaginal bleeding, she stopped taking Zepbound 3 weeks ago. Patient has been taking Pepcid and eating crackers and vegetable soup. She is established with urology for episode of nephrolithiasis and had renal ultrasound last month consistent with 4 mm nonobstructing kidney stone. Two weeks ago patient had an episode of sharp upper chest pain palpitations with nausea and had her pulse checked by a dentist who works in the same office and was told she might have atrial fibrillation. Patient denies any recurrent chest pain or palpitations. [facility] Medical History (Updated 08/11/25 @ 13:35 by Milana Hester MD) Abdominal pain Hyperlipidemia Vitamin B 12 deficiency Microhematuria Annual physical exam Tinnitus FH: total knee replacement Osteoarthritis, knee Iron deficiency anemia Asthma Osteopenia Surgical History S/P gastric bypass History of esophagogastroduodenoscopy (EGD) H/O colonoscopy Family History Father Cancer Mother No problems noted. Social History Housing: House Patient Tobacco Use Status: Never used Tobacco e-Cigarette/Vaping Use: Never Used Second Hand Smoke Exposure: No service: No Current occupational status: employed Current occupational exposures/hazards: No Cognitive needs: No Hearing needs: No Vision needs: No Questionnaire Thrive Questionnaire Date Thrive assessed: 04/24/25 I am a: Patient What is your living situation today?: I have a steady place to live Within the past 12 months, did the food you bought not last and you didn't have the money to get more?: Never true Within the past 12 months, did you worry whether your food would run out before you got money to buy more?: Never true Do you have trouble paying for medicines?: No Do you have trouble getting transportation to medical appointments?: No Do you have trouble paying your heating and electricity bill?: No Do you have trouble taking care of your child, family member or friend?: No Do you have trouble with day-to-day activities such as bathing, preparing meals, shopping, managing finances, etc.?: No Are you currently unemployed and looking for a job?: No Are you interested in more education?: No Currently or been in a relationship where the following occur: No concerns reported THRIVE Score: 0 NBA-7 AMB Questionnaire NBA-7 Date NBA - 7 assessed: 04/24/25 Source: Developed by Drs. Roberto Muniz, Kim Pat, Lalo Deng and colleagues, with an educational ivonne from [employer]. Review of Systems Const All systems reviewed & are unremarkable except as noted in HPI and below Eyes Reports no additional complaints ENT Reports no additional complaints Card Reports no additional complaints Resp Reports no additional complaints GI Reports no additional complaints Reports no additional complaints Physical exam (Primary Care) Vital Signs: Last Vital Signs Pulse 68 08/11/25 12:12 BP 122/76 08/11/25 12:12 Pulse Ox 99 08/11/25 12:12 BMI result Body Mass Index 32.8 Tobacco/Smoking Status: Tobacco use Status Tobacco use date assessed 04/24/25 08/11/25 12:13 Patient Tobacco Use Status Never used Tobacco 08/11/25 12:13 e-Cigarette/Vaping Use Never Used 08/11/25 12:13 Thrive Assessment: Date of Thrive Assessment Date Thrive assessed 04/24/25 08/11/25 12:13 Currently or been in a relationship where the following occur: No concerns reported Const General: no acute distress HENMT Head: Yes normal to inspection Neck Neck: Yes supple Resp Effort & Inspection: normal respiratory effort Auscultation: clear to auscultation bilaterally Cardio Rhythm: regular rhythm Heart sounds: S1 normal heart sound present and S2 normal heart sound present GI Inspection: Yes normal to inspection Palpation (GI): Soft to palpation and Tenderness to palpation present (GI) in the epigastrum; with no rebound tenderness Percussion: Yes normal to percussion Auscultation: normal bowel sounds General: Yes no CVA tenderness Back/Spine/Pelvis Back: no CVA tenderness Results AMB Urinalysis, Automated UA Leukoctes 0 Bahman/uL Last Edit by Bro Crabtree CMA on 08/11/25 13:07 UA Nitrite Negative Last Edit by Bro Crabtree CMA on 08/11/25 13:07 UA Urobilinogen 0.2 mg/dL Last Edit by Bro Crabtree CMA on 08/11/25 13 :07 UA Protein 0 mg/dL Last Edit by Bro Crabtree CMA on 08/11/25 13:07 UA pH 6.0 Last Edit by Bro Crabtree CMA on 08/11/25 13:07 UA Blood 10 Nima/uL Last Edit by Bro Crabtree CMA on 08/11/25 13:07 UA Specific Sutton 1.030 Last Edit by Bro Crabtree CMA on 08/11/25 13:07 UA Ketone Negative Last Edit by Bro Crabtree CMA on 08/11/25 13:07 UA Bilirubin 0 mg/dL Last Edit by Bro Crabtree CMA on 08/11/25 13:07 UA Glucose 0 mg/dL Last Edit by Bro Crabtree CMA on 08/11/25 13:07 Coding Level of Care Code Est Pt Level 4 (21493) Diagnoses Abdominal pain R10.9 Palpitations R00.2 Assessment & Plan Assessment & Plan (1) Abdominal pain: Code(s): R10.9 - Unspecified abdominal pain Category: Medical Plan: Urine dipstick positive for trace of blood, negative for nitrates and leukocytes. Check urine culture, check comprehensive panel and CBC. Trial of omeprazole for 1 month and treatment of constipation discussed with the patient. She was advised to not restart Zepbound for 4 weeks (2) Palpitations: Code(s): R00.2 - Palpitations Category: Medical Plan: EKG showed normal sinus rhythm no ST-T changes. Check echo and 5 day Holter to evaluate for paroxysmal AFib, follow-up in 1 month Orders: Orders Comprehensive Met. Panel Today R10.9 - Unspecified abdominal pain Urine Culture Today R10.9 - Unspecified abdominal pain CA echo transthoracic complete Today I48.91 - Unspecified atrial fibrillation AMB Urinalysis Automated Today Z13.9 - Encounter for screening, unspecified Complete Blood Count Auto Diff Today R10.9 - Unspecified abdominal pain ECG 5 day holter monitor Today I48.91 - Unspecified atrial fibrillation TSH reflex Free T4 Today R00.2 - Palpitations Medications: New omeprazole 20 mg PO DAILY 30 caps 0RF omeprazole 20 mg PO DAILY 30 caps 0RF
--- OUTSIDE RECORDS SUMMARY | 2025-08-11 13:21 | XMS_ITS | Patient Health Record ---
Author Organization [facility] Address [address] [place] [address] Care Team Providers Care Electric Meter Inspector Name Role Phone Milana Hester Primary Care [...] day Active Ciclopirox 8 % 1 application Saw Superintendent ally to toenail Once a day; Duration: [...] Date Coverage End Date [employer] Medicare Adv-[id number] [address] [address] [place] [address] [id number] Lydia Mcneil Self - patient is the [...]
--- OUTSIDE RECORDS SUMMARY | 2025-08-11 13:21 | XMS_ITS | Clinical Summary ---
Author Organization [facility] ity Address [address] [place] [address] Care Team Providers Care Steersman Name Role Phone Unavailable Primary Care Provider [...] Depression Screening 08/20/2024 COVID-19 Vaccine (1 - 2024-2 6 season) 2025 Influenza Vaccine (#1) 2025 RSV [...]
--- OUTSIDE RECORDS SUMMARY | 2025-08-11 13:21 | XMS_ITS | Data Portability ---
Author Organization [facility], [facility] Address [address] [place] [address] Care Team Providers Care Paperhanger Name Role Phone Milana Hester Primary Care Provider Assessment No assessment recorded. Plan of Treatment Reminders Order Date Submit Date Provider Name Organization Details Last Modified By Last Modified Time Details Appointments None record ed. Lab None record ed. Referral None record ed. Procedures None record ed. Surgeries None record ed. Imaging None record ed. MedicationOrders None record ed. VaccineOrders None record ed. Patient TargetsNo targets recorded. Patient InstructionsNo instructions recorded. Reason for Referral None Reported. Problems Name Problem SNOMED Code Status Onset Date Resolution Date Notes Provider Name and Address Organization Details Recorded Time No complaints [id number] Active Status : 'A'; Not Available [facility] 4 09:19:55 Problem Notes None recorded. Procedures Surgical History Date Name Laterality Status Provider Name and Address Organization Details Recorded Time 4 Sports Knee 4&1 completed Jeannette Mckinney PA-C [address] [facility] [address], [place], [address], [facility] 02/05/2024 16:45:56 6 Knee Surgery completed KAYLIA L'HEUREUX [facility] 02/05/2024 15:55:53 Imaging Results None recorded. Procedure Notes None recorded. Medical Equipment None Reported. Allergies Allergen ID Allergen Name Allergen Category Reaction Reaction Severity Criticality Documentation Date Start Date Code Code System Note Provider Name and Address Organization Details Recorded Time 63504 Substance with sulfonami de structure and antibacte rial mechanism of action (substanc e) medicatio n Not available Not available Not available 10/22/20232007 13098 8003 SNOMED Aller gyRea ction : 'Skin React ion, X'; Not Available [facility] 4 14:47:29 81534 latex environme nt,medica tion Not available Not available Not available 10/22/20232007 73100 91 RxNorm Aller gyRea ction : 'Skin React ion'; Not Available [facility] 4 14:47:29 Medications Name Authored On Sig Start Date Stop Date Status Note Indication Fill Status Repeat Number Dispense Quantity LastModified by Organization Details LastModified Time pseud oephe david -dwayne fenes in ER 80-70 0 mg table t,ext ended relea se 4 18:29:38 1-2 TABS EVER Y 4-6 HRS PRN PAIN NOT TO EXCE ED 8 TABS IN 24 HRS 02/04 aborted Statu s: 'Curr ent'; Not Available Not availab le 0 Not Available KAYLIA L'HEUREUX [facility] 02/05/2024 15:56:16 multi vitam in 4 15:56:30 active Not Available Not availab le 0 Not Available KAYLIA L'HEUREUX [facility] 02/05/2024 15:56:30 prava stati n 10 mg table t 4 15:56:37 Take 1 tabl et ever y day by oral rout e. active Not Available Not availab le 0 Not Available KAYLIA L'HEUREUX [facility] 02/05/2024 15:56:37 CoQ10 10 mg capsu le 4 15:56:44 Take by oral rout e. active Not Available Not availab le 0 Not Available KAYLIA L'HEUREUX [facility] 02/05/2024 15:56:44 diclo fenac 1 % topic al gel 15:57:20 APPL Y 2 GRAM S TO THE AFF CTED AREA (S) BY S[place]INO [place] 4 TIME S PER DAY active Not Available Not availab le 0 Not Available KAYLIA L'HEUREUX [facility] 02/05/2024 15:57:20 Vitals Date Recorded Body height Body mass index (BMI) Body weight Provider Name and Address Organization Details Last Updated DateTime 02/05/2024 170.18 cm 39.3 kg/m2 612959.68 g KAYLIA L'HEUREUX [facility] 02/05/2024 15:56:09 Social History Question Answer Notes LastModified by Organizat ion Details LastModified Time Tobacco Smoking Status Never Smoker KAYLIA L'HEUREUX [facility] 02/05/2024 15:55:53 How Many Times Per Week Do You Consume Alcohol? Less Than 1 Time Per Week KAYLIA L'HEUREUX [facility] 02/05/2024 15:55:53 What is your relationship status? DAVIDE L'HEUREUX [facility] 02/05/2024 15:55:53 Have you ever been counseled for unhealthy alcohol use? No KAYLIA L'HEUREUX [facility] 02/05/2024 15:56:56 Social History Observation Description Date Observed Sex Unknown 2024 Legal Sex Female Status Not (finding) 08/11/20 25 No social history survey screeners recorded No social history SDOH screeners recorded Functional Status Question Answer Note LastModified by Organizat ion Details LastModified Time Do you or have you ever used any other forms of tobacco or nicotine? No KAYLIA L'HEUREUX [facility] 02/05/2024 15:55:53 Do you or have you ever used e-cigarettes or vape? Never used electronic cigarettes KAYLIA L'HEUREUX [facility] 02/05/2024 15:55:53 How many times per week do you consume alcohol? Less than 1 time per week KAYLIA L'HEUREUX [facility] 02/05/2024 15:55:53 Do you use any illicit or recreational drugs? No KAYLIA L'HEUREUX [facility] 02/05/2024 15:55:53 What is your level of alcohol consumption? Occasional KAYLIA L'HEUREUX [facility] 02/05/2024 15:56:56 No Functional Screening assessment recorded No Functional SDOH screeners recorded Mental Status None recorded. No Mental Screening assessment recorded No Mental SDOH screeners recorded Family History Nothing Reported. Medical History Condition Response Allergies/Hayfever N Coronary Artery Disease N Breathing or lung disorders N Anxiety/Depression N Emphysema N Nerve Disorders N Thyroid Problems N COPD N Pacemaker N Kidney/Bladder Problems N Anemia N Vascular Disease N Heart Trouble N Heart Attack ([place]) N Gastrointestinal Disease N Cholesterol N Diabetes N Autoimmune disease N Bleeding Disorder N Orthotics N Seizures/Epilepsy N Arthritis Y Blood Clot N AIDS/HIV N Congestive Heart Failure (CHF) N Acid Reflux (GERD) N Cancer N Stroke N Asthma N Circulation Problems N Peripheral Vascular Disease N Sleep Apnea N Hepatitis N Heart Disease N Rheumatoid Arthritis N Pulmonary Embolism N Arrhythmia N Headaches N Fibromyalgia N Hypertension N Osteoporosis N Gynecological HistoryNo gynecological history recorded. Obstetrics History GPAL:G 0 P 0 0 0 0 Past Encounters Encounter ID Performer Location Encounter Start Date Encounter Closed Date Diagnosis/Indication Diagnosis SNOMED-CT Code Diagnosis ICD10 Code Diagnosis IMO Codes Diagnosis Note [id number] [facility]LY [facility] [place] [address] 02/05/2024 15:43:21 03/05/2024 07:28:55 Osteoarthritis of right knee joint 4182278558 19146 M17.11 Knee joint prosthesis present 7174672753 02 Z96.652 Health Concerns Section Related Observation LastModified by Organization Detai ls LastModified Time None Recorded Concern Status LastModified by Organization Details LastModified Time None Recorded SDOH Concern Status LastModified by Organization Detai ls LastModified Time None Recorded Advance Directives Directive None Recorded Payers Insurance Date Sequence Insurance Name Policy Number Policy Lugo Covered Member ID Lugo Member ID Guarantor Name 03/05/2024 1 [facility] (MEDICARE REPLACEMENT/A DVANTAGE - PPO) [id number] Lydia Lilly [id number] Lydia Lilly Notes Date Note Type Note Provider Name and Address Organization Details Recorded Time 02/05/2024 text/html *I am seeing the patient today under the supervision of Dr. Sun who was available but who did not see the patient. HPI: Lydia presents to the office today for a recheck of her bilateral knees. She has known end-stage osteoarthritis of the right knee which has responded favorably to cortisone injections in the past. She also is status post left total knee arthroplasty performed in 2008. She recently underwent vascular procedures for her bilateral legs which has improved the symptoms in her feet. She continues to wear compression stockings. She is aware that she needs a right total knee arthroplasty but is trying to postpone surgery. She may consider surgery in the fall. She has intermittent discomfort in the left knee. Her right knee frequently feels unstable. She is here today for treatment recommendations. PMH/PSH/MEDS/ALL/FMH/ SOC HX/ROS are reviewed in detail per my medical intake sheet. General Exam: Vital signs are as noted belowMental status: Alert and lucid. 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 No spasticity or clonus noted. EXAMINATION: The patient is well appearing and in no apparent distress. Alert and oriented x3. Gait is antalgic. Right knee reveals varus deformity upon inspection. No joint effusion, edema, erythema, ecchymosis, or lesions. Neurovascularly intact. Tenderness present along the medial joint line. ROM is from 0-120 . Patellofemoral crepitus noted. Stability intact with anterior, posterior, and varus/valgus stress at both 0 and 30 degrees of flexion. Positive flexion pinch and patella grind. 5/5 strength. Calf/leg compartments soft and compressible. Left knee reveals a surgical scar over the anterior knee, otherwise no deformity upon inspection. No joint effusion, edema, erythema, ecchymosis, or lesions. Neurovascularly intact. No localized tenderness. ROM is 0-120 . No crepitus noted. Stability intact with anterior, posterior, and varus/valgus stress at both 0 and 30 degrees of flexion. 5/5 strength. Calf/leg compartments soft and compressible. X-rays performed previously at [facility] have been reviewed. IMPRESSION: Right knee end-stage osteoarthritis, status post left total knee arthroplasty. PLAN: The patient was thoroughly counseled today regarding their knee condition, its natural history, and conservative versus surgical treatment options. The patient is interested in receiving an injection with corticosteroid. The right knee was prepped sterilely and an injection was administered utilizing 40mg of Kenalog and 4cc of 0.25% Marcaine. The patient tolerated the procedure well. Post-injection precautions were discussed. Recommended avoiding strenuous activity over the next 24-48 hours. Encouraged elevation of the leg, applying ice, and taking over the counter medication as needed. The patient is aware that the injection can be repeated as often as every 3 months. She is considering surgery later this year. She is established with Dr. Hummel who performed her left TKA. She would like to schedule an appointment with him in the fall to plan for her right total knee. We reviewed the procedure and post-operative recovery today. A prescription for a hinged knee brace was given. All questions answered. The patient is ambulatory, but has weakness and/or instability of their extremity which requires stabilization from this semi-rigid/rigid orthosis to improve their function. Verbal and written instructions for the use and application of this item were given. Patient was instructed that should the brace result in increased pain, decreased sensation, increased swelling or an overall worsening of their medical condition, to please contact our office immediately. Jeannette Mckinney PA-C [address], [place], [address], [facility] 02/05/2024 20:46:03 Care Team Name Role Member ID Specialty Address Phone MILANA HESTER MD Primary Care Provider [id number] [facility] Denis Arzola [place] OBGyn Episode No OBEpisode recorded.
== END 2025-08-11 13:36 | disposition home or self-care (01) ==
LOC: HO.HMCC 12:09
PROVIDERS: PCP Internal Medicine; Visit Provider Internal Medicine
DX: R10.9 Unspecified abdominal pain (principal); R00.2 Palpitations; Z13.9 Encounter for screening, unspecified